=== PATIENT | male | born 1970 | race Two or more races ===

== ENCOUNTER 2024-12-27 09:17 | Outpatient (REF) | payer OTHER, SELFPAY | END 2024-12-27 09:18 | disposition home or self-care (01) | LOC: HO.HPHYSR 09:17 | PROVIDERS: PCP Internal Medicine; Visit Provider Physical Medicine & Rehabilitation | DX: M16.0 Bilateral primary osteoarthritis of hip (principal) | CPT/HCPCS: 20610; 77002; J2003; J3301; Q9967 ==

== ENCOUNTER 2024-12-27 09:17 | Outpatient (AMB) | payer OTHER, SELFPAY ==
--- OUTSIDE RECORDS SUMMARY | 2024-08-29 04:15 | XMS_ITS ---
Author Organization [facility] [address] Address [address] [place] [address] Care Team Providers Care Physics Teacher Name Role Phone JOHNLATOYA KIMBALL Unavailable [phone] Encounters Encounter Location Date Provider Diagnosis [facility] [address] [place] [address] 08/29/2024 LATOYA JOHNSON Other obesity due to [...] Status post venous procedure last month at [facility] Total time spent today was 30 minutes [...] software and direct typing Please excuse inadvertent digester capper or typing errors, or uncorrected word substitutions Although every attempt has been made by the provider to proofread this document, occasional misspellings and typographical errors may still be present Due to the previous pandemic, and the use of personal protective equipment (PPE) This may decrease voice recognition accuracy Inadvertent digester capper errors may occur 08/29/2024 BMI 35.0-35.9,adult (ICD-10 - Z68.35) #Weight Management 08/29/2024 Patient is thriving and continual improvements in body composition including fat mass Continue 15 mg dosing Status post venous procedure last month at [facility] Total time spent today was 30 [...] software and direct typing Please excuse inadvertent digester capper or typing errors, or uncorrected word substitutions Although every attempt has been made by the provider to proofread this document, occasional misspellings and typographical errors may still be present Due to the previous pandemic, and the use of personal protective equipment (PPE) This may decrease voice recognition accuracy Inadvertent digester capper errors may occur 08/29/2024 Dietary counseling and surveillance (ICD-10 - Z71.3) #Weight Management 08/29/2024 Patient is thriving and continual improvements in body composition including fat mass Continue 15 mg dosing Status post venous procedure last month at [facility] Total time spent today was 30 [...] software and direct typing Please excuse inadvertent digester capper or typing errors, or uncorrected word substitutions Although every attempt has been made by the provider to proofread this document, occasional misspellings and typographical errors may still be present Due to the previous pandemic, and the use of personal protective equipment (PPE) This may decrease voice recognition accuracy Inadvertent digester capper errors may occur 08/29/2024 PAF (paroxysmal atrial fibrillation) (ICD-10 - I48.0) #Weight Management 08/29/2024 Patient is thriving and continual improvements in body composition including fat mass Continue 15 mg dosing Status post venous procedure last month at [facility] Total time spent today was 30 [...] software and direct typing Please excuse inadvertent digester capper or typing errors, or uncorrected word substitutions Although every attempt has been made by the provider to proofread this document, occasional misspellings and typographical errors may still be present Due to the previous pandemic, and the use of personal protective equipment (PPE) This may decrease voice recognition accuracy Inadvertent digester capper errors may occur 08/29/2024 Pure hypercholesterol emia, unspecified (ICD-10 - E78.00) #Weight Management 08/29/2024 Patient is thriving and continual improvements in body composition including fat mass Continue 15 mg dosing Status post venous procedure last month at [facility] Total time spent today was 30 [...] software and direct typing Please excuse inadvertent digester capper or typing errors, or uncorrected word substitutions Although every attempt has been made by the provider to proofread this document, occasional misspellings and typographical errors may still be present Due to the previous pandemic, and the use of personal protective equipment (PPE) This may decrease voice recognition accuracy Inadvertent digester capper errors may occur 08/29/2024 DONNA (obstructive sleep apnea) (ICD-10 - G47.33) #Weight Management 08/29/2024 Patient is thriving and continual improvements in body composition including fat mass Continue 15 mg dosing Status post venous procedure last month at [facility] Total time spent today was 30 [...] software and direct typing Please excuse inadvertent digester capper or typing errors, or uncorrected word substitutions Although every attempt has been made by the provider to proofread this document, occasional misspellings and typographical errors may still be present Due to the previous pandemic, and the use of personal protective equipment (PPE) This may decrease voice recognition accuracy Inadvertent digester capper errors may occur 08/29/2024 Prediabetes (ICD-10 - R73.03) #Weight Management 08/29/2024 Patient is thriving and continual improvements in body composition including fat mass Continue 15 mg dosing Status post venous procedure last month at [facility] Total time spent today was 30 [...] software and direct typing Please excuse inadvertent digester capper or typing errors, or uncorrected word substitutions Although every attempt has been made by the provider to proofread this document, occasional misspellings and typographical errors may still be present Due to the previous pandemic, and the use of personal protective equipment (PPE) This may decrease voice recognition accuracy Inadvertent digester capper errors may occur 08/29/2024 Anemia due to [...] software and direct typing Please excuse inadvertent digester capper or typing errors, or uncorrected word substitutions Although every attempt has been made by the provider to proofread this document, occasional misspellings and typographical errors may still be present Due to the previous pandemic, and the use of personal protective equipment (PPE) This may decrease voice recognition accuracy Inadvertent digester capper errors may occur 08/29/2024 Type 2 diabetes [...] software and direct typing Please excuse inadvertent digester capper or typing errors, or uncorrected word substitutions Although every attempt has been made by the provider to proofread this document, occasional misspellings and typographical errors may still be present Due to the previous pandemic, and the use of personal protective equipment (PPE) This may decrease voice recognition accuracy Inadvertent digester capper errors may occur 08/29/2024 Encounter for examination [...] software and direct typing Please excuse inadvertent digester capper or typing errors, or uncorrected word substitutions Although every attempt has been made by the provider to proofread this document, occasional misspellings and typographical errors may still be present Due to the previous pandemic, and the use of personal protective equipment (PPE) This may decrease voice recognition accuracy Inadvertent digester capper errors may occur Plan Of Treatment Next Appt Details Provider Name:LATOYA JOHNSON, 12/31/2024 09:45:00 AM, [address] [facility], [facility] [address], [place], [address], History and Physical Notes * HPI (History [...] saw vascular surgery on July 11 at [facility] is status post endovenous radiofrequency ablation [...] weight: 250-260 lbs Comprehensive labs November 2023 [facility] epic Hemoglobin A1c of 5.0 Renal function electrolytes and LFTs are stable Total cholesterol 178, triglycerides 125, HDL 41, LDL 112 TSH 2.09 Amylase is normal 87 Lipase 76 Examination Category Sub-Category Detail Notes Category Not es General Examination GENERAL APPEARANCE: in no ac eyak distress, well developed, well nourished HEAD: normocephalic, [...] Notes * Steve CHRISTIANSONOB: (54 yo M)Acc No.[id number]:08/29/2024 Patient: Shaq Diamond Provider: Camila JOHNSON NP :1970 A ge:54 Y S ex:Male Date:08/29/2024 Address:[address] [place], [place] [id number] Subjective: * Chief Complaints: * HPI: C [...] saw vascular surgery on July 11 at [facility] is status post endovenous radiofrequency ablation [...] weight: 250-260 lbs Comprehensive labs November 2023 [facility] epic Hemoglobin A1c of 5.0 Renal [...] excess calories - E66.09 2 . B TX 35.0-35.9,adult - Z68.35 3 . D ietary [...] Status post venous procedure last month at [facility] Total time spent today was 30 minutes [...] software and direct typing Please excuse inadvertent digester capper or typing errors, or uncorrected word substitutions Although every attempt has been made by the provider to proofread this document, occasional misspellings and typographical errors may still be present Due to the previous pandemic, and the use of personal protective equipment (PPE) This may decrease voice recognition accuracy Inadvertent digester capper errors may occur * Electronic signature of LINDEN JOHNSON on 12/27/2024 at 09:37 AM EST Sign off status: Pending * Provider: Camila JOHNSON NP Date: 0 08/29/2024 Generated for Dominique Duran/Viji on: 1 02/27/2024 09:37 AM EST
--- OUTSIDE RECORDS SUMMARY | 2024-12-03 04:00 | XMS_ITS ---
Author Organization [facility] [address] Address [address] [place] [address] Care Team Providers Care Substitute Crossing Guard Name Role Phone LATOYA JOHNSON Unavailable [phone] Encounters Encounter Location Date Provider Diagnosis [facility] [address] [place] [address] 12/03/2024 LATOYA JOHNSON Plan Of Treatment Next Appt Details Provider Name:LATOYA JOHNSON, 12/31/2024 09:45:00 AM, [address], [address], [place], [address], Progress Notes * Steve DALEYOB: (54 yo M)Acc No.[id number]:12/03/2024 Patient: Herve VarelaivanJungon Provider: Camila JOHNSON NP :1970 A ge:54 Y S ex:Male Date:12/03/2024 Address:[address] [place] [phone] * Electronic signature of LINDEN JOHNSON on 12/27/2024 at 09:37 AM EST Sign off status: Pending * Provider: Camila JOHNSON NP Date: Generated for Henrii ng/Fagabrielag/eTransmitting on: 02/27/2024 09:37 AM EST
--- NOTE | 2024-12-27 09:18 | A.PHYSOV ---
Vital Signs 12/27/24 09:19 Height 5 ft 11 in Weight 242 lb BMI 33.7 BP 118/85 Temp 97.4 F Intake Visit Reasons: Bilateral Intraarticular Hip Injection Intake Note: Patient is a 54 year old male in office today for a Bilateral Intraarticular Hip Injection. Hide Cooking Operator Required: Yes Hide Cooking Operator Language: E [employer] Mer[employer] Services: Hide Cooking Operator Offered & Declined (patient wants his emergency contact) Allergies gabapentin Allergy (Unknown, Verified 12/27/24 09:22) Unknown [facility] Medical History (Updated 12/27/24 @ 09:43 by Daniel Felix DO) Degenerative joint disease of both hips Surgical History (Updated 12/27/24 @ 09:23 by Destiny Brown MA) History of appendectomy History of gastric bypass (Unknown) Social History (Updated 12/27/24 @ 09:23 by Destiny Brown MA) Alcohol intake: current Alcohol intake frequency: does not drink Patient Tobacco Use Status: Never used Tobacco Use of substances other than those prescribed or required for medical reasons: No Current occupational status: retired and disabled Physical Exam Vital Signs: Last Vital Signs Temp 97.4 F 12/27/24 09:19 BP 118/85 12/27/24 09:19 BMI result Body Mass Index 33.7 Office Procedures AMB Hip Injection AMB Hip Injection Procedure Details: Procedure performed: Bilateral hip injection under fluoroscopic guidance Preop diagnosis: Hip DJD Postop diagnosis: The same Patient was brought into the procedure room and placed in the supine position in the procedure table. Right hip joint was visualized utilizing fluoroscopy. Skin over joint was prepped with Betadine solution and draped. 3.5 in 22 gauge spinal needle was introduced percutaneously and advanced into the joint. Needle placement was verified utilizing 3 cc of Omnipaque contrast solution. Total volume of 5 cc containing 40 mg of triamcinolone and 2% lidocaine was injected after negative aspiration for blood and without resistance. The identical procedure was repeated on the left side Radiation exposure was recorded and documented in the chart. Hip intraarticular Injection - - use with FL Gd order: Bilateral All charges added?: Procedure code (CPT) selection complete Office Meds Kenalog 40 mg/mL suspension for injection Performing Provider: Daniel Felix DO Performing Location: [facility] Administered by: Daniel Felix DO on 12/27/24 09:26 Dose Route Admin Location Dispensed Lot Number Expiration Date [facility] Critical Systems Technician 80 mg intrabursal 2 mL [id number] [employer] Total Dispensed Waste 2 mL 0 % lidocaine (PF) 20 mg/mL (2 %) injection solution Performing Provider: Daniel Felix DO Performing Location: [facility] Administered by: Daniel Felix DO on 12/27/24 09:26 Dose Route Admin Location Dispensed Lot Number Expiration Date [facility] Critical Systems Technician 160 mg intrabursal 10 mL [id number] [facility] Total Dispensed Waste 10 mL 20 % Omnipaque 300 300 mg iodine/mL intravenous solution Performing Provider: Daniel Felix DO Performing [facility] Administered by: Daniel Felix DO on 12/27/24 09:26 Dose Route Admin Location Dispensed Lot Number Expiration Date [facility] Critical Systems Technician 3 mL intra-articular 10 mL [id number] [employer] Total Dispensed Waste 10 mL 70 % Assessment & Plan Assessment & Plan (1) Degenerative joint disease of both hips: Code(s): M16.0 - Bilateral primary osteoarthritis of hip Category: Medical Qualifiers: Osteoarthritis type: primary Qualified Code(s): M16.0 - Bilateral primary osteoarthritis of hip Plan Bilateral hip injection Orders: Orders FL Guided Asp Inj Major Jt BI Today M16.0 - Bilateral primary osteoarthritis of hip AMB Hip/Bursa Injection Today M16.0 - Bilateral primary osteoarthritis of hip Coding Level of Care Code Procedure Only Diagnoses Primary osteoarthritis of both hips M16.0 Osteoarthritis type: primary CPT Codes AMB Hip Injection - Hip intraarticular Injection - : Bilateral ([id number])
[2024-12-27 09:19] VITALS: BP 118/85; TEMP 36.3; BMI 33.7
--- OUTSIDE RECORDS SUMMARY | 2024-12-27 09:38 | XMS_ITS | Clinical Summary ---
Author Organization [facility] Address [address] [place] [address] Care Team Providers Care Toe Puller Name Role Phone Marianne Garner MD Primary Care Provider [phone] Allergies Active Allergy Reactions Criticality Noted Date Comments Gabapentin 09/27/2019 Medications Medication Sig Dispensed Refills Start Date End Date Status ARIPiprazole (ABILIFY) 10 MG tablet 0 04/07/2022 Active atorvastatin (LIPITOR) tablet 10 mg 0 04/07/2022 Active FLUoxetine (PROzac) 40 MG capsule 0 04/07/2022 Active fluticasone (FLONASE) 50 MCG/ACT nasal spray 2 puff each nostril as needed 0 01/25/2022 Active hydroCHLOROthiazide (HYDRODIURIL) tablet 25 mg Take 1 tablet (25 mg total) by mouth daily. 0 01/25/2022 Active lisinopril (PRINIVIL,ZESTRIL) tablet 40 mg 0 02/01/2022 Active metoprolol succinate (TOPROL-XL) 24 hr tablet 200 mg Take 1 tablet (200 mg total) by mouth daily. 0 01/25/2022 Active Active Problems No known active problems Social History Tobacco Use Types Packs/Day Years Used Date Smoking Tobacco: Never Smokeless Tobacco: Never Tobacco Cessation:Counseling Given: Not Answered Alcohol Use Standard Drinks/Week Comments Yes 0 (1 standard drink = 0.6 oz pur e alcohol) Social Sex and Gender Information Value Date Recorded Sex Assigned at Not on file Gender Identity Not on file Sexual Orientation Not on file Job Start Date Occupation Industry Not on file Not on file Not on file Last Filed Vital Signs Vital Sign Reading Time Taken Comments Blood Pressure 136/80 04/11/2022 1:28 PM EST Pulse 71 04/11/2022 1:28 PM EST Temperature 36.4 C (97.6 F) 04/11/2022 1:28 PM EST Respiratory Rate - - Oxygen Saturation 97% 04/11/2022 1:28 PM EST Inhaled Oxygen Concentration - - Weight 152 kg (335 lb) 04/11/2022 1:28 PM EST Height - - Body Mass Index - - Plan of Treatment Health Maintenance Due Date Last Done Comments Hepatitis B Vaccines (1 of 3 - 3-dose series) 1970 Hepatitis C Screening 1970 COVID-19 Vaccine (#1) 1970 Depression Screening 1983 Preventative Health Evaluation 06/17/1989 Colon Cancer Screening (Colonoscopy) 06/17/2016 Shingrix-Zoster Vaccine (1 of 2) 06/17/2021 DTap / Tdap / Td (2 - Td or Tdap) 09/06/2021 09/07/2011 Influenza Vaccine (#1) 2024 5, 12/04/2013, 10/19/2012, Additional history exists Pneumococcal Vaccine Aged Out No long er eligible based on patient's age to complete this topic RSV Ped < 20 months Aged Out No longe r eligible based on patient's age to complete this topic Care Teams Toe Puller Relationship Specialty Start Date End Date Marianne Garner MD [address] [address] PCP - General Internal Medicine 02/02/22
--- OUTSIDE RECORDS SUMMARY | 2024-12-27 09:38 | XMS_ITS | Clinical Summary ---
Author Organization 175 [facility] Address [address] [place] [address] Phone Care Team Providers Care Superintendent Storage Area Name Role Phone Marianne Garner MD Primary Care Provider [phone] Allergies Active Allergy Reactions Criticality Noted Date Comments Gabapentin 09/27/2019 Medications albuterol HFA (PROAIR HFA ; PROVENTIL HFA ; VENTOLIN HFA) 90 mcg/actuation inhaler Inhale 2 Puffs into the lungs every 6 hours as needed for Cough, Wheezing or Shortness of Breath. 4 Active ARIPiprazole (ABILIFY) 10 mg tablet Take 1 Tablet by mouth daily. 3 Active aspirin 81 mg EC tablet Take 1 Tab by mouth daily. 9 Active cetirizine (ZyrTEC) 10 mg tablet TAKE 1 TABLET BY MOUTH DAILY 4 Active clotrimazole (LOTRIMIN) 1 % cream APPLY TOPICALLY TO THE AFFECTED AREA TWICE DAILY FOR 10 DAYS FOR RASH 4 Active FLUoxetine (PROzac) 40 mg capsule 3 Active multivitamin with minerals (MULTIPLE VITAMIN-MINERALS ORAL) Take by mouth daily. Active fish,bora,flax oils-om3,6,9no1 (Caldwell 3-6-9) 1,200 mg capsule Caldwell 3-6-9 Cap Take by mouth daily. Active ondansetron ODT (ZOFRAN-ODT) 4 mg disintegrating tablet 1 tablet (4 mg total) every 8 (eight) hours if needed. 4 Active traZODone (DESYREL) 50 mg tablet Take 1 tablet (50 mg total) by mouth at bedtime as needed. 4 Active UNABLE TO FIND CPAP HISTORICAL (HISTORICAL CPAP)Inhale into the lungs. [employer]-pressure 8 Active diclofenac (VOLTAREN) 1 % topical gelIndications:Acu te pain of both knees Apply 4 g topically 2 (two) times a day if needed (maggie knee pain). 100 g 1 4 Active linaCLOtide (LINZESS) 145 mcg capsule Take 1 capsule (145 mcg total) by mouth 1 (one) time each day. Active atorvastatin (Lipitor) 40 mg tablet Take 1 tablet (40 mg total) by mouth at bedtime. 30 each 11 5 026 Active tiZANidine (ZANAFLEX) 4 mg tablet 1 tablet (4 mg total) every 8 hours. PRN Active eszopiclone (LUNESTA) 2 mg tablet Take 1 tablet (2 mg total) by mouth at bedtime. Active tirzepatide (Mounjaro) 15 mg/0.5 mL injection Inject 0.5 mL (15 mg total) under the skin every 7 (seven) days. Active lisinopril (PRINIVIL,ZESTRIL) 40 mg tablet TAKE 1 TABLET(40 MG) BY MOUTH 1 TIME EACH DAY 90 tablet 1 5 Active hydroCHLOROthiazid e (HYDRODIURIL) 25 mg tablet Take 1 tablet (25 mg total) by mouth 1 (one) time each day. 90 tablet 1 5 Active metoprolol succinate (TOPROL-XL) 200 mg 24 hr tablet TAKE 1 TABLET(200 MG) BY MOUTH 1 TIME EACH DAY 90 tablet 1 5 Active fluticasone propionate (FLONASE) 50 mcg/actuation nasal spray SHAKE LIQUID AND USE 2 SPRAYS IN EACH NOSTRIL 1 TIME EACH DAY 16 g 3 5 Active Active Problems Problem Noted Date Diagnosed Date Venous reflux 12/06/2023 Overview (12/15/2023): He had venous duplex on 10/23/2023. This revealed no evidence of deep vein thrombosis. On the right side there is no superficial venous thrombosis. No venous reflux noted in the small saphenous vein. This saphenofemoral popliteal junction was not identified. There is severe up to 4.5 seconds of reflux in the proximal, mid, at knee, and output greater Saphenous vein. There is no reflux within the lower calf greater saphenous vein. On the left there is no evidence of deep vein thrombosis. There is 4.1 seconds of reflux in the saphenofemoral junction, 4.5 seconds of reflux in the common femoral vein, 2.9 seconds of reflux in the mid femoral vein and 4.5 seconds of reflux in the popliteal vein. Palpitations 05/04/2022 Overview (12/15/2023): Last Assessment & Plan: Likely a subjective awareness of high blood pressure more so than incidental PVCs given that he did not really feel his PVCs in the office today, symptoms are few and far between at this point, continue to monitor for worsening severity Premature ventricular contractions 04/27/2022 Overview (12/15/2023): - Incidentally noted during an ER visit to [facility] for sensation of palpitations associated with high blood pressure on his home monitor - I am not convinced that these are truly symptomatic -In the office on 05/04/2022, PVCs are of left bundle morphology with inferior axis- consistent with possible RVOT focus -Patient had echocardiogram on 06/2022. This revealed mildly dilated left ventricular cavity with mild, concentric left ventricular hypertrophy. Mild global LV systolic dysfunction with ejection fraction of 45 to 50%. There is normal right ventricular size and systolic function. No hemodynamically significant valve disease. Moderately dilated left atrium Last Assessment & Plan: Incidentally noted and likely asymptomatic as he did not feel any of the PVCs experienced in the office today Already on metoprolol 100 mg which I do not feel needs to be increased Reassured that these are likely benign but I am obtaining a 2D echocardiogram to assure that his ejection fraction is normal, will likely need to be done with Definity contrast enhancement Hyperlipidemia 10/19/2016 Assessment & Plan (02/19/2024 9:21 AM EST): Going to increase patient's atorvastatin from 20 mg to 40 mg p.o. daily. Going to get a lipid redraw in 3 months. Patient's been instructed to reach out to the office if he develops any side effects such as myalgias. Has been educated on adhering to a cardiac healthy diet. Orders: Lipid panel; Future Primary osteoarthritis of right hip 10/30/2015 Spondylosis of lumbar region without myelopathy or radiculopathy 10/30/2015 Anxiety 07/02/2014 Pulmonary nodule, right 02/17/2014 Overview (12/15/2023): 4.[address] done at [facility] to r/o PE. Repeat recommended for February 2015 Depression 06/03/2013 Overview (12/15/2023): Patient has a prescribing psychiatric provider in [facility] (dr Vargas). On carbamezepine and citalopram and lorazepam Morbid obesity ([facility] V24, [facility] V28) 2012 DONNA (obstructive sleep apnea) 06/20/2012 Overview (12/15/2023): Patient using a CPAP machine nightly Last Assessment & Plan: Patient with severe obstructive sleep apnea Compliance report meeting DME requirements with use of 99% of the time more than 4 hours and adequate suppression of the apneas Despite his continued use his ESS score is 15 and he has hypersomnolence Encouraged to continue with the weight loss reduction program Advised to continue using the CPAP machine Supplies letter has been given Paroxysmal A-fib ([facility] V24, [facility] V28) 02/07 Overview (12/15/2023): - Initially had an episode sometime around 2006 per the patient and his legislative analyst in [place] at which point he reports being cardioverted- apparently was told he needed a pacemaker but sought a second opinion from another salesforce developer who did not feel this was needed - Admitted with yecenia at [facility] on 02/2014. MICAH score of 1. Recommended rate control and ASA Last Assessment & Plan: Very low burden, low [id number] score overall, agree with baby aspirin, continue metoprolol which is serving both as rate control but also for blood pressure control Assessment & Plan (02/19/2024 9:21 AM EST): Patient is in sinus rhythm on EKG today. [id number] 2 score of 1. Recommended rate control and aspirin. Patient is still on those medications, and seems to be doing well. Varicose veins of both lower extremities 012 Overview (12/15/2023): Varicose veins Chronic low back pain 09/07/2011 HTN (hypertension) 09/07/2011 Overview (12/15/2023): Last Assessment & Plan: Reasonably well-controlled on current meds, continue, continue use of CPAP Agree with seeking assistance from weight management clinic for weight loss-no cardiovascular contraindications to Ozempic Assessment & Plan (02/19/2024 9:21 AM EST): Patient reports that he has been trying to lose weight and has been exercising/walking. He reports that he feels like his blood pressures have been low in the morning, however, they seem to be in 110s over 70s. I am going to have the patient take blood pressure measurements record them and get back to the office in a week. Can titrate medications based on those values. I did educate him that if he continues to lose weight he would likely notice his blood pressure numbers going down. Encounters Date Type Department Care Team Description 11/19/2024 10:35 AM EDT Office Visit Pulmonology - [address] [place] [address] Marni Narvaez NP DONNA (obstructive sleep apnea) (Primary Dx); Hypertension, unspecified type; Depression, unspecified depression type; Paroxysmal A-fib (CMS/HCC V24, CMS/HCC V28); Obesity (BMI 30-39.9) from Last 3 Months Surgical History Surgery Date Site/Laterality Comments APPENDECTOMY PROCEDURE: HISTORICAL APPENDECTOMY OTHER SURGICAL HISTORY PROCEDURE: GA THYROIDECTOMY RMVL REMAINING TISS FLWG PRTL RMVL; COMMENT: normal thyroid nodule OTHER SURGICAL HISTORY 06/2014 PROCEDURE: ---- OTHER ----; COMMENT: history of bariatric surgery/ gastric sleeve Medical History Medical History Date Comments PA, old DX:PA, old HTN (hypertension) DX:HTN (hyper tension) Chronic lumbar pain DX:Chronic l umbar pain Family History Medical History Relation Name Comments Hypertension Brother Other: ovarian cancer Daughter 1 Diabetes Father Heart attack Father Stroke Father Diabetes Grandparent 1 Heart attack Grandparent 2 Hypertension Mother Hypertension Sister Relation Name Status Comments Brother Alive Daughter 1 Alive dm Daughter 2 Alive Daughter 3 Alive Father (Age 56) htn Grandparent 1 Grandparent 2 Mother Alive htn Sister Alive htn Social History Tobacco Use Types Packs/Day Years Used Date Smoking Tobacco: Never Smokeless Tobacco: Never Tobacco Cessation:Counseling Given: Not Answered Alcohol Use Standard Drinks/Week Comments No 0 (1 standard drink = 0.6 oz pur e alcohol) Sex and Gender Information Value Date Recorded Sex Assigned at Not on file Legal Sex Male 1:00 AM EST Gender Identity Not on file Sexual Orientation Not on file Obstetrics History Last Filed Vital Signs Vital Sign Reading Time Taken Comments Blood Pressure 124/72 11/19/2024 10:17 AM EDT Pulse 77 11/19/2024 10:17 AM EDT Temperature 36.6 C (97.8 F) 11/19/2024 10:17 AM EDT Respiratory Rate 16 11/19/2024 10:17 AM EDT Oxygen Saturation 99% 11/19/2024 10:17 AM EDT Inhaled Oxygen Concentration - - Weight 118 kg (259 lb 9.6 oz) 11/19/2024 10:17 A M EDT Height 180.3 cm (5' 11 ) 11/19/2024 10:17 AM EDT Body Mass Index 36.21 11/19/2024 10:17 AM EDT Plan of Treatment Upcoming Encounters Date Type Department Care Team (Late st Contact Info) Description 01/15/2025 2:30 PM EST Office Visit Vascular Surgery - [address] [place] [address] Lila Spence MD [address] [place] [phone] 02/21/2025 9:45 AM EST Office Visit Pulmonology - [address] [phone] Marni Narvaez NP [address] [place] [phone] 02/28/2025 8:15 AM EST Office Visit Internal Medicine - [address] [place] [phone] Marianne Garner MD [address] [place] [phone] Health Maintenance Due Date Last Done Comments Colorectal Cancer Screening: Colonoscopy 1971 Diabetes: Annual Foot Exam 06/17/1981 Diabetes: Annual Retina Eye Exam 06/17/1981 Hepatitis B Vaccines (1 of 3 - 19+ 3-dose series) 06/17/1990 Pneumococcal Vaccine: 50+ Years (1 of 1 - PCV) 06/17/2021 Zoster Vaccines (1 of 2) 06/17/2021 DTaP,Tdap,and Td Vaccines (2 - Td or Tdap) 09/06/2021 09/07/2011 Medicare Annual Wellness Visit 01/15/2022 Social Influencers of Health Screening 01/15/2022 Diabetes: Annual Urine Albumin-Creatinine Ratio (uACR) 11/17/2023 Depression Screening 02/07/2024 07/31/2020 Diabetes: Blood Sugar Control Test (HGBA1C) 05/15/2024 11/15/2023, 11/15/2023 COVID-19 Vaccine ( season) 2024 01/24/2023, 02/07/2021, 06/20/2020, Additional history exists Influenza Vaccine (#1) 2024 , 11/28/2017, 10/17/2014, Additional history exists Diabetes: Annual GFR (Glomerular Filtration Rate) 09/24/2025 09/24/2024, 05/02/2024, 11/15/2023, Additional history exists Hypertension/CHF/CAD Annual BMP Blood Test 09/24/2025 09/24/2024, 05/02/2024, 11/15/2023, Additional history exists Cholesterol Screening (Lipid Panel) 09/24/2029 09/24/2024, 05/02/2024, 11/15/2023, Additional history exists RSV Immunization Adult Patients (1 - 1-dose 75+ series) 06/17/2046 HIV Screening Completed 09/19/2013 Hepatitis C Screening Completed 09/19/2013 HIB Vaccines Aged Out No longer eligi ble based on patient's age to complete this topic HPV Vaccines Aged Out No longer eligi ble based on patient's age to complete this topic Hepatitis A Vaccines Aged Out No long er eligible based on patient's age to complete this topic IPV Vaccines Aged Out No longer eligi ble based on patient's age to complete this topic MMR Vaccines Aged Out No longer eligi ble based on patient's age to complete this topic Meningococcal ACWY Vaccine Aged Out N o longer eligible based on patient's age to complete this topic Meningococcal B Vaccine Aged Out No l onger eligible based on patient's age to complete this topic RSV Immunization Patients Under 20 months Aged Out No longer eligible based on patient's age to complete this topic Varicella Vaccines Aged Out No longer eligible based on patient's age to complete this topic Procedures Procedure Name Priority Date/Time Associated Diagnosis Comments COMPREHENSIVE METABOLIC PANEL Routine 09/24/2024 8:50 AM EDT Primary hypertension Mixed hyperlipidemia LIPID PANEL WITH REFLEX TO DIRECT LDL Routine 09/24/2024 8:50 AM EDT Primary hypertension Mixed hyperlipidemia HEMOGLOBIN A1C Routine 11/15/2023 DEPRESSION SCREENING Routine 07/31/2020 HEPATITIS C SCREENING Routine 09/19/2013 HIV SCREENING Routine 09/19/2013 from Last 3 Months or Most Recently Relevant to Health Maintenance Results * (ABNORMAL) Lipid panel with reflex to direct LDL (09/24/2024 8:50 AM EDT) Cholesterol 188 0 - 200 mg/dL LAB CHEMISTRY METHOD 09/24/2024 2:42 PM EDT [facility] Triglycerides 148 0 - 150 mg/dL LAB CHEMISTRY METHOD 09/24/2024 2:42 PM EDT [facility] HDL 43 >=40 mg/dL LAB CHEMISTRY METHOD 09/24/2024 2:42 PM EDT [facility] LDL Calculated 115(H) 0 - 100 mg/dL LAB CHEMISTRY METHOD 09/24/2024 2:42 PM EDT [facility] Comment:Estimated LDL Calcul ated using equation: Total cholesterol - HDL cholesterol - (Triglycerides/5) VLDL Cholesterol Jarrod 29.6 mg/dL LAB CHEMISTRY METHOD 09/24/2024 2:42 PM EDT [facility] Non HDL Chol. (LDL+VLDL) 145(H) <145 mg/dL LAB CHEMISTRY METHOD 09/24/2024 2:42 PM EDT [facility] Chol/HDL Ratio 4.4 0.0 - 4.4 LAB CHEMISTRY METHOD 09/24/2024 2:42 PM EDT [facility] Blood Venous blood specimen / Unknown Venipuncture / Unknown 09/24/2024 8:50 AM EDT 09/24/2024 8:50 AM EDT us Marianne Garner MD LAB BLOOD ORDERABLES Final Res ult [facility] [address] [place] [address], * Comprehensive metabolic panel (09/24/2024 8:50 AM EDT) Sodium 138 133 - 145 mmol/L LAB CHEMISTRY METHOD 09/24/2024 2:42 PM EDT [facility] Potassium 3.8 3.5 - 5.5 mmol/L LAB CHEMISTRY METHOD 09/24/2024 2:42 PM [facility] Chloride 101 96 - 110 mmol/L LAB CHEMISTRY METHOD 09/24/2024 2:42 PM [facility] CO2 32 21 - 32 mmol/L LAB CHEMISTRY METHOD 09/24/2024 2:42 PM [facility] Anion Gap 5 3 - 11 LAB CHEMISTRY METHOD 09/24/2024 2:42 PM [facility] Glucose 79 70 - 100 mg/dL LAB CHEMISTRY METHOD 09/24/2024 2:42 PM [facility] BUN 20 5 - 25 mg/dL LAB CHEMISTRY METHOD 09/24/2024 2:42 PM [facility] Creatinine 1.16 0.70 - 1.30 mg/dL LAB CHEMISTRY METHOD 09/24/2024 2:42 PM [facility] eGFR 75 >=60 mL/min/1. 73m2 LAB CHEMISTRY METHOD 09/24/2024 2:42 PM [facility] Comment:Calculation based on the Chronic Kidney Disease Epidemiology Collaboration (CKD-EPI) equation refit without adjustment for race. BUN/Creatinine Ratio 17.2 LAB CHEMISTRY METHOD 09/24/2024 2:42 PM [facility] Calcium 8.9 8.5 - 10.5 mg/dL LAB CHEMISTRY METHOD 09/24/2024 2:42 PM [facility] AST (SGOT) 21 10 - 42 unit/L LAB CHEMISTRY METHOD 09/24/2024 2:42 PM [facility] ALT (SGPT) 29 10 - 60 unit/L LAB CHEMISTRY METHOD 09/24/2024 2:42 PM [facility] Alkaline Phosphatase 90 42 - 121 unit/L LAB CHEMISTRY METHOD 09/24/2024 2:42 PM [facility] Total Protein 7.3 6.0 - 8.0 g/dL LAB CHEMISTRY METHOD 09/24/2024 2:42 PM EDT [facility] Albumin 3.7 3.2 - 5.0 g/dL LAB CHEMISTRY METHOD 09/24/2024 2:42 PM EDT [facility] Total Bilirubin 0.7 0.0 - 1.4 mg/dL LAB CHEMISTRY METHOD 09/24/2024 2:42 PM EDT [facility] Blood Venous blood specimen / Unknown Venipuncture / Unknown 09/24/2024 8:50 AM EDT 09/24/2024 8:50 AM EDT Marianne Garner MD LAB BLOOD ORDERABLES Final Res ult [facility] [address] [place] [address], * Hemoglobin A1c (11/15/2023) [facility] Hemoglobin A1C 5.0 <=6.5 % Blood Venous blood specimen / Unknown Historical Provider LAB BLOOD ORDERABLES Ana l Result * Depression Screening (07/31/2020) Pathologist [facility] Depression Screening Abstracted Historical Provider HEALTH MAINTENANCE Final Result * HIV Screening (09/19/2013) Pathologist [facility] HIV Screening Abstracted Historical Provider HEALTH MAINTENANCE Final Result * Hepatitis C Screening (09/19/2013) Pathologist [facility] Hepatitis C Screening Abstracted Historical Provider HEALTH MAINTENANCE Final Result from Last 3 Months or Most Recently Relevant to Health Maintenance Insurance [facility] MEDICARE Member Subscriber Plan / Payer (Ef fective 2019-Present) Name:GUILLERMO CHRISTIANSON Relation to Subscriber:Self Name:Guillermo Christianson Payer ID:[id number] Group ID:[id number] Type:Not on file Address: [facility] [address] [id number] Care Teams Superintendent Storage Area Relationship Specialty Start Date End Date Marianne Garner MD [address] [phone] PCP - General Internal Medicine 01/08/24
--- OUTSIDE RECORDS SUMMARY | 2024-12-27 09:38 | XMS_ITS | Patient Health Record ---
Author Organization [facility] [address] Address [address] [place] [address] Care Team Providers Care Liquid Fertilizer Servicer Name Role Phone LATOYA JOHNSON Unavailable [phone] Allergies Allergen (clinical drug ingredient) Drug/Non Drug Allergy documented on EMR Reaction Allergy Type Onset Date Status gabapentin Gabapentin rash Drug Allergy Activ e Reason For Referral No Information Medications Medication SIG (Take, Route, Frequency, Duration) Notes Start Date End Date Status tiZANidine HCl 4 MG Tablet 1 tablet as n eeded Orally Three times a day Active Cetirizine HCl 10 MG Tablet 1 tablet Ora lly Once a day Active Mounjaro 15 MG/0.5ML Solutio n Auto-injector 15mg Subcutaneous weekly; Duration: 30 days Active Aspirin 81 81 MG Tablet Chewable 1 tablet Orally Once a day Active Atorvastatin Calcium 20 MG Tablet 1 tablet Orally Once a day Active Fluticasone Furoate 100 MCG/ACT Aerosol Powder Breath Activated 1 puff Inhalation Once a day Active Ondansetron 4 MG Tablet Disintegrating 1 tablet on the tongue and allow to dissolve prn nausea/vomiting Orally twice day; Duration: 30 days Active Lisinopril 40 MG Tablet 1 tablet Orally Once a day Active hydroCHLOROthiazide 25 MG Tablet 1 tablet in the morning Orally Once a day Active Multivitamin - Tablet 1 tablet Orally On ce a day Active Linzess 145 MCG Capsule [address] 30 minutes before the first meal of the day on an empty stomach Orally Once a day; Duration: 30 days 06/04/2024 Active Metoprolol Succinate ER 200 MG Tablet Extended Release 24 Hour 1 tablet Orally Once a day Active Clotrimazole 1 % Cream 1 application Externally Twice a day Active cloNIDine 0.1 MG/24HR Patch Weekly 1 patch to skin Transdermal Active Social History Tobacco Use: Social History Observation Description Date Details (start date - stop date) Never Smoker NA - NA Social History Tobacco Use: Social Info Question Answer Notes Tobacco Use/Smoking Are you a nonsmoker Additional Details Category Social Info Options Details Drugs/Alcohol: Do you smoke marijuana? De nies Do you drink alcohol? No Problems Problem Type SNOMED Code ICD Code Onset Dates Problem Status W/U Status Risk Notes Problem Morbid obesity (disorder) (730111103) Morbid (severe) obesity due to excess calories (E66.01) Active confirmed Problem Obesity due to exces s calories (425088023) Other obesity due to excess calories (E66.09) Active confirmed Problem Pure hypercholesterolemia (005796899) Pure hypercholesterol emia, unspecified (E78.00) Active confirmed Problem Hyperlipidaemia (73962268) Hyperlipidemia, unspecified hyperlipidemia type (E78.5) Active confirmed Problem Hypothyroidism (53702567) Hypothyroidism, unspecified type (E03.9) Active confirmed Problem Obstructive sleep apnea syndrome (55466770) DONNA (obstructive sleep apnea) (G47.33) Active confirmed Problem Body mass index 40+ - morbidly obese (376208546) BMI 40.0-44.9, adult (Z68.41) Active confirmed Problem Type II diabetes mellitus without complication (901103265) Type 2 diabetes mellitus without complication, without long-term current use of insulin (E11.9) Active confirmed Problem Body mass index 35.0 0 to 39.99 (345818033341393) Body mass index [BMI] 39.0-39.9, adult (Z68.39) Active confirmed Problem Obese class II (523336456198298) BMI 35.0-35.9,adult (Z68.35) Active confirmed Problem Vitamin B>12< deficiency anaemia (08858202) Anemia due to vitamin B12 deficiency, 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) Active confirmed Problem Obese class II (923076686221625) BMI 38.0-38.9,adult (Z68.38) Active confirmed Problem Atrial fibrillation (97761967) PAF (paroxysmal atrial fibrillation) (I48.0) Active confirmed Problem Body mass index 40+ - severely obese (784648817) BMI 45.0-49.9, adult (Z68.42) Active confirmed Vital Signs Heart Rate 83 /min 10/22/2024 Oximetry 99 % 10/22/2024 Blood pressure diastolic 80 mm Hg 10/22/2024 Height 71 in 10/22/2024 Blood pressure systolic 106 mm Hg 10/22/2024 Weight 256.5 lbs 10/22/2024 BMI 35.77 kg/m2 10/22/2024 Encounters Encounter Location Date Provider Diagnosis [facility] [address] [address] 01/19/2024 LATOYA CARRShirley Other obesity due to excess calories E66.09 ; BMI 38.0-38.9,adult Z68.38 ; Dietary counseling and surveillance Z71.3 ; PAF (paroxysmal atrial fibrillation) I48.0 ; Pure hypercholesterolemia, unspecified E78.00 ; DONNA (obstructive sleep apnea) G47.33 ; Prediabetes R73.03 ; Anemia due to vitamin B12 deficiency, unspecified B12 deficiency type D51.9 and Type 2 diabetes mellitus without complication, without long-term current use of insulin E11.9 [facility] [address] [address] 03/06/2024 LATOYA ALEX Other obesity due to excess calories E66.09 ; BMI 38.0-38.9,adult Z68.38 ; Dietary counseling and surveillance Z71.3 ; PAF (paroxysmal atrial fibrillation) I48.0 ; Pure hypercholesterolemia, unspecified E78.00 ; DONNA (obstructive sleep apnea) G47.33 ; Prediabetes R73.03 ; Anemia due to vitamin B12 deficiency, unspecified B12 deficiency type D51.9 and Type 2 diabetes mellitus without complication, without long-term current use of insulin E11.9 [facility] [address] [address] 04/17/2024 LATOYA ALEX Other obesity due to excess calories E66.09 ; BMI 35.0-35.9,adult Z68.35 ; Dietary counseling and surveillance Z71.3 ; PAF (paroxysmal atrial fibrillation) I48.0 ; Pure hypercholesterolemia, unspecified E78.00 ; DONNA (obstructive sleep apnea) G47.33 ; Prediabetes R73.03 ; Anemia due to vitamin B12 deficiency, unspecified B12 deficiency type D51.9 and Type 2 diabetes mellitus without complication, without long-term current use of insulin E11.9 [facility] [address] [address] 06/04/2024 LATOYA BORHOT Other obesity due to excess calories E66.09 ; BMI 35.0-35.9,adult Z68.35 ; Dietary counseling and surveillance Z71.3 ; PAF (paroxysmal atrial fibrillation) I48.0 ; Pure hypercholesterolemia, unspecified E78.00 ; DONNA (obstructive sleep apnea) G47.33 ; Prediabetes R73.03 ; Anemia due to vitamin B12 deficiency, unspecified B12 deficiency type D51.9 and Type 2 diabetes mellitus without complication, without long-term current use of insulin E11.9 [facility] [address] [address] 07/17/2024 LATOYA BORHOT Other obesity due to excess calories E66.09 [...] of blood pressure without abnormal findings Z01.30 [facility] [address] [address] 09/09/2024 LATOYA BORHOT Other obesity due to excess calories E66.09 [...] of blood pressure without abnormal findings Z01.30 [facility] [address] [address] 10/22/2024 LATOYA BORHOT Other obesity due to excess calories E66.09 ; BMI 35.0-35.9,adult Z68.35 ; Dietary counseling and surveillance Z71.3 ; PAF (paroxysmal atrial fibrillation) I48.0 ; Pure hypercholesterolemia, unspecified E78.00 ; DONNA (obstructive sleep apnea) G47.33 ; Prediabetes R73.03 ; Type 2 diabetes mellitus without complication, without long-term current use of insulin E11.9 and Encounter for examination of blood pressure without abnormal findings Z01.30 [facility] [address] [facility] [address] [place] [address] 05/14/2024 LATOYA JOHNSON Other obesity due to excess calories E66.09 [facility] [address] [facility] [address] [facility] [address] [place] [address] 08/28/2024 LATOYA JOHNHOShirley Other obesity due to excess calories E66.09 [facility] [address] [facility] [address] [facility] [address] [place] [address] 10/11/2024 LATOYA JOHNSON Morbid (severe) obes ity due to excess calories E66.01 and Other obesity due to excess calories E66.09 [facility] [address] [facility] [address] [facility] [address] [place] [address] 11/12/2024 LATOYA JOHNSON Other obesity due to excess calories E66.09 Assessments Encounter Date Diagnosis (ICD Code) Assessment Notes Treatment Notes Treatment Clinical Notes Section Notes 01/19/2024 Other obesity due to excess calories (ICD-10 - E66.09) #Weight Management 01/19/2024 Thriving and has left the morbid obesity world Continue with dual incretin therapy Increased to 15 mg dosing Total time spent today was 30 minutes of which greater than 50% was spent on coordinating and counseling Patient has been found to be obese with a BMI of (38). Patient has class (3) obesity. We are a board certified obesity and weight management practice Patient has trialed behavioral modification, dietary restrictions and exercise for a minimum of 6 months The most recent [place] [employer]ocrin[employer] and [place] [employer] guidelines recommend patients who have overweight BMI or obesity BMI, who also have metabolic syndrome, prediabetes, HLD, and other comorbidities or at risk of developing type 2 diabetes should aim for a weight loss goal of at least 10% of the baseline body weight Patient counseled regarding effects of GLP/GIP-1 agonists, and other FDA approved wgt loss meds with regards to a multifactorial approach of weight loss as mentioned above and not solely appetite suppression. Of note, some information is being carried forward from prior records for informational purposes only and is being cited so that efficiency, safety and quality of the patient's care is not compromised This note was prepared using voice recognition software and direct typing Please excuse inadvertent tobacco grader or typing errors, or uncorrected word substitutions Although every attempt has been made by the provider to proofread this document, occasional misspellings and typographical errors may still be present Due to the previous pandemic, and the use of personal protective equipment (PPE) This may decrease voice recognition accuracy Inadvertent tobacco grader errors may occur 03/06/2024 Other obesity due to excess calories (ICD-10 - E66.09) #Weight Management 03/06/2024 Continuing to improve Body composition analysis improving Continue 15 mg dosing Total time spent today was 30 minutes of which greater than 50% was spent on coordinating and counseling Patient has been found to be obese with a BMI of (38). Patient has class (3) obesity. We are a board certified obesity and weight management practice Patient has trialed behavioral modification, dietary restrictions and exercise for a minimum of 6 months The most recent [place] [employer]ocrinologists and [place] [employer] guidelines recommend patients who have overweight BMI or obesity BMI, who also have metabolic syndrome, prediabetes, HLD, and other comorbidities or at risk of developing type 2 diabetes should aim for a weight loss goal of at least 10% of the baseline body weight Patient counseled regarding effects of GLP/GIP-1 agonists, and other FDA approved wgt loss meds with regards to a multifactorial approach of weight loss as mentioned above and not solely appetite suppression. Of note, some information is being carried forward from prior records for informational purposes only and is being cited so that efficiency, safety and quality of the patient's care is not compromised This note was prepared using voice recognition software and direct typing Please excuse inadvertent tobacco grader or typing errors, or uncorrected word substitutions Although every attempt has been made by the provider to proofread this document, occasional misspellings and typographical errors may still be present Due to the previous pandemic, and the use of personal protective equipment (PPE) This may decrease voice recognition accuracy Inadvertent tobacco grader errors may occur 04/17/2024 Other obesity due to excess calories (ICD-10 - E66.09) #Weight Management 04/17/2024 Continue fiber and water We gave him some Linzess samples Body composition analysis improving Continue 15 mg dosing Total time spent today was 30 minutes [...] software and direct typing Please excuse inadvertent tobacco grader or typing errors, or uncorrected word substitutions Although every attempt has been made by the provider to proofread this document, occasional misspellings and typographical errors may still be present Due to the previous pandemic, and the use of personal protective equipment (PPE) This may decrease voice recognition accuracy Inadvertent tobacco grader errors may occur 05/14/2024 Other obesity due to excess calories (ICD-10 - E66.09) 06/04/2024 Other obesity due to excess calories (ICD-10 - E66.09) #Weight Management 06/04/2024 Patient is thriving and continual improvements in body composition including fat mass Continue 15 mg dosing Total time spent today was 30 minutes [...] software and direct typing Please excuse inadvertent tobacco grader or typing errors, or uncorrected word substitutions Although every attempt has been made by the provider to proofread this document, occasional misspellings and typographical errors may still be present Due to the previous pandemic, and the use of personal protective equipment (PPE) This may decrease voice recognition accuracy Inadvertent tobacco grader errors may occur 07/17/2024 Other obesity due to excess calories (ICD-10 - E66.09) #Weight Management 07/17/2024 Patient is thriving and continual improvements in body composition including fat mass Continue 15 mg dosing Status post venous procedure last month at [facility] Total time spent today was 30 [...] software and direct typing Please excuse inadvertent tobacco grader or typing errors, or uncorrected word substitutions Although every attempt has been made by the provider to proofread this document, occasional misspellings and typographical errors may still be present Due to the previous pandemic, and the use of personal protective equipment (PPE) This may decrease voice recognition accuracy Inadvertent tobacco grader errors may occur 08/28/2024 Other obesity due to excess calories (ICD-10 - E66.09) 09/09/2024 Other obesity due to excess calories (ICD-10 - E66.09) #Weight Management 09/09/2024 Patient is thriving and continual improvements in body composition Continue 15 mg dosing Will be due for updated labs later this fall Total time spent today was 30 minutes [...] software and direct typing Please excuse inadvertent tobacco grader or typing errors, or uncorrected word substitutions Although every attempt has been made by the provider to proofread this document, occasional misspellings and typographical errors may still be present Due to the previous pandemic, and the use of personal protective equipment (PPE) This may decrease voice recognition accuracy Inadvertent tobacco grader errors may occur 10/22/2024 Other obesity due to excess calories (ICD-10 - E66.09) #Weight Management 10/22/2024 Patient is thriving and continual improvements in body composition Continue 15 mg dosing Labs are reviewed Total time spent today was 30 minutes [...] software and direct typing Please excuse inadvertent tobacco grader or typing errors, or uncorrected word substitutions Although every attempt has been made by the provider to proofread this document, occasional misspellings and typographical errors may still be present Due to the previous pandemic, and the use of personal protective equipment (PPE) This may decrease voice recognition accuracy Inadvertent tobacco grader errors may occur 11/12/2024 Other obesity due to excess calories (ICD-10 - E66.09) 10/22/2024 BMI 35.0-35.9,adult (ICD-10 - Z68.35) #Weight Management 10/22/2024 Patient is thriving and continual improvements in body composition Continue 15 mg dosing Labs are reviewed Total time spent today was 30 minutes [...] software and direct typing Please excuse inadvertent tobacco grader or typing errors, or uncorrected word substitutions Although every attempt has been made by the provider to proofread this document, occasional misspellings and typographical errors may still be present Due to the previous pandemic, and the use of personal protective equipment (PPE) This may decrease voice recognition accuracy Inadvertent tobacco grader errors may occur 10/11/2024 Morbid (severe) obesity due to excess calories (ICD-10 - E66.01) Electronic Prior Authorization was requested for Mounjaro 15 MG/0.5ML Solution Auto-injector. Provider can order medication once approval received. 09/09/2024 BMI 35.0-35.9,adult (ICD-10 - Z68.35) #Weight Management 09/09/2024 Patient is thriving and continual improvements in body composition Continue 15 mg dosing Will be due for updated labs later this fall Total time spent today was 30 minutes [...] software and direct typing Please excuse inadvertent tobacco grader or typing errors, or uncorrected word substitutions Although every attempt has been made by the provider to proofread this document, occasional misspellings and typographical errors may still be present Due to the previous pandemic, and the use of personal protective equipment (PPE) This may decrease voice recognition accuracy Inadvertent tobacco grader errors may occur 07/17/2024 BMI 35.0-35.9,adult (ICD-10 - Z68.35) #Weight Management 07/17/2024 Patient is thriving and continual improvements in body composition including fat mass Continue 15 mg dosing Status post venous procedure last month at [facility] Total time spent today was 30 [...] software and direct typing Please excuse inadvertent tobacco grader or typing errors, or uncorrected word substitutions Although every attempt has been made by the provider to proofread this document, occasional misspellings and typographical errors may still be present Due to the previous pandemic, and the use of personal protective equipment (PPE) This may decrease voice recognition accuracy Inadvertent tobacco grader errors may occur 06/04/2024 BMI 35.0-35.9,adult (ICD-10 - Z68.35) #Weight Management 06/04/2024 Patient is thriving and continual improvements in body composition including fat mass Continue 15 mg dosing Total time spent today was 30 minutes [...] software and direct typing Please excuse inadvertent tobacco grader or typing errors, or uncorrected word substitutions Although every attempt has been made by the provider to proofread this document, occasional misspellings and typographical errors may still be present Due to the previous pandemic, and the use of personal protective equipment (PPE) This may decrease voice recognition accuracy Inadvertent tobacco grader errors may occur 04/17/2024 BMI 35.0-35.9,adult (ICD-10 - Z68.35) #Weight Management 04/17/2024 Continue fiber and water We gave him some Linzess samples Body composition analysis improving Continue 15 mg dosing Total time spent today was 30 minutes [...] software and direct typing Please excuse inadvertent tobacco grader or typing errors, or uncorrected word substitutions Although every attempt has been made by the provider to proofread this document, occasional misspellings and typographical errors may still be present Due to the previous pandemic, and the use of personal protective equipment (PPE) This may decrease voice recognition accuracy Inadvertent tobacco grader errors may occur 03/06/2024 BMI 38.0-38.9,adult (ICD-10 - Z68.38) #Weight Management 03/06/2024 Continuing to improve Body composition analysis improving Continue 15 mg dosing Total time spent today was 30 minutes of which greater than 50% was spent on coordinating and counseling Patient has been found to be obese with a BMI of (38). Patient has class (3) obesity. We are a board certified obesity and weight management practice Patient has trialed behavioral modification, dietary restrictions and exercise for a minimum of 6 months The most recent [place] [employer]ocrinologists and [place] [employer] guidelines recommend patients who have overweight BMI or obesity BMI, who also have metabolic syndrome, prediabetes, HLD, and other comorbidities or at risk of developing type 2 diabetes should aim for a weight loss goal of at least 10% of the baseline body weight Patient counseled regarding effects of GLP/GIP-1 agonists, and other FDA approved wgt loss meds with regards to a multifactorial approach of weight loss as mentioned above and not solely appetite suppression. Of note, some information is being carried forward from prior records for informational purposes only and is being cited so that efficiency, safety and quality of the patient's care is not compromised This note was prepared using voice recognition software and direct typing Please excuse inadvertent tobacco grader or typing errors, or uncorrected word substitutions Although every attempt has been made by the provider to proofread this document, occasional misspellings and typographical errors may still be present Due to the previous pandemic, and the use of personal protective equipment (PPE) This may decrease voice recognition accuracy Inadvertent tobacco grader errors may occur 01/19/2024 BMI 38.0-38.9,adult (ICD-10 - Z68.38) #Weight Management 01/19/2024 Thriving and has left the morbid obesity world Continue with dual incretin therapy Increased to 15 mg dosing Total time spent today was 30 minutes of which greater than 50% was spent on coordinating and counseling Patient has been found to be obese with a BMI of (38). Patient has class (3) obesity. We are a board certified obesity and weight management practice Patient has trialed behavioral modification, dietary restrictions and exercise for a minimum of 6 months The most recent [place] [employer]ocrinologists and [place] [employer] guidelines recommend patients who have overweight BMI or obesity BMI, who also have metabolic syndrome, prediabetes, HLD, and other comorbidities or at risk of developing type 2 diabetes should aim for a weight loss goal of at least 10% of the baseline body weight Patient counseled regarding effects of GLP/GIP-1 agonists, and other FDA approved wgt loss meds with regards to a multifactorial approach of weight loss as mentioned above and not solely appetite suppression. Of note, some information is being carried forward from prior records for informational purposes only and is being cited so that efficiency, safety and quality of the patient's care is not compromised This note was prepared using voice recognition software and direct typing Please excuse inadvertent tobacco grader or typing errors, or uncorrected word substitutions Although every attempt has been made by the provider to proofread this document, occasional misspellings and typographical errors may still be present Due to the previous pandemic, and the use of personal protective equipment (PPE) This may decrease voice recognition accuracy Inadvertent tobacco grader errors may occur 01/19/2024 Dietary counseling and surveillance (ICD-10 - Z71.3) #Weight Management 01/19/2024 Thriving and has left the morbid obesity world Continue with dual incretin therapy Increased to 15 mg dosing Total time spent today was 30 minutes of which greater than 50% was spent on coordinating and counseling Patient has been found to be obese with a BMI of (38). Patient has class (3) obesity. We are a board certified obesity and weight management practice Patient has trialed behavioral modification, dietary restrictions and exercise for a minimum of 6 months The most recent [place] [employer]ocrinologists and [place] [employer] guidelines recommend patients who have overweight BMI or obesity BMI, who also have metabolic syndrome, prediabetes, HLD, and other comorbidities or at risk of developing type 2 diabetes should aim for a weight loss goal of at least 10% of the baseline body weight Patient counseled regarding effects of GLP/GIP-1 agonists, and other FDA approved wgt loss meds with regards to a multifactorial approach of weight loss as mentioned above and not solely appetite suppression. Of note, some information is being carried forward from prior records for informational purposes only and is being cited so that efficiency, safety and quality of the patient's care is not compromised This note was prepared using voice recognition software and direct typing Please excuse inadvertent tobacco grader or typing errors, or uncorrected word substitutions Although every attempt has been made by the provider to proofread this document, occasional misspellings and typographical errors may still be present Due to the previous pandemic, and the use of personal protective equipment (PPE) This may decrease voice recognition accuracy Inadvertent tobacco grader errors may occur 03/06/2024 Dietary counseling and surveillance (ICD-10 - Z71.3) #Weight Management 03/06/2024 Continuing to improve Body composition analysis improving Continue 15 mg dosing Total time spent today was 30 minutes of which greater than 50% was spent on coordinating and counseling Patient has been found to be obese with a BMI of (38). Patient has class (3) obesity. We are a board certified obesity and weight management practice Patient has trialed behavioral modification, dietary restrictions and exercise for a minimum of 6 months The most recent [place] [employer] and [employer] guidelines recommend patients who have overweight BMI or obesity BMI, who also have metabolic syndrome, prediabetes, HLD, and other comorbidities or at risk of developing type 2 diabetes should aim for a weight loss goal of at least 10% of the baseline body weight Patient counseled regarding effects of GLP/GIP-1 agonists, and other FDA approved wgt loss meds with regards to a multifactorial approach of weight loss as mentioned above and not solely appetite suppression. Of note, some information is being carried forward from prior records for informational purposes only and is being cited so that efficiency, safety and quality of the patient's care is not compromised This note was prepared using voice recognition software and direct typing Please excuse inadvertent tobacco grader or typing errors, or uncorrected word substitutions Although every attempt has been made by the provider to proofread this document, occasional misspellings and typographical errors may still be present Due to the previous pandemic, and the use of personal protective equipment (PPE) This may decrease voice recognition accuracy Inadvertent tobacco grader errors may occur 04/17/2024 Dietary counseling and surveillance (ICD-10 - Z71.3) #Weight Management 04/17/2024 Continue fiber and water We gave him some Linzess samples Body composition analysis improving Continue 15 mg dosing Total time spent today was 30 minutes [...] software and direct typing Please excuse inadvertent tobacco grader or typing errors, or uncorrected word substitutions Although every attempt has been made by the provider to proofread this document, occasional misspellings and typographical errors may still be present Due to the previous pandemic, and the use of personal protective equipment (PPE) This may decrease voice recognition accuracy Inadvertent tobacco grader errors may occur 06/04/2024 Dietary counseling and surveillance (ICD-10 - Z71.3) #Weight Management 06/04/2024 Patient is thriving and continual improvements in body composition including fat mass Continue 15 mg dosing Total time spent today was 30 minutes [...] software and direct typing Please excuse inadvertent tobacco grader or typing errors, or uncorrected word substitutions Although every attempt has been made by the provider to proofread this document, occasional misspellings and typographical errors may still be present Due to the previous pandemic, and the use of personal protective equipment (PPE) This may decrease voice recognition accuracy Inadvertent tobacco grader errors may occur 07/17/2024 Dietary counseling and surveillance (ICD-10 - Z71.3) #Weight Management 07/17/2024 Patient is thriving and continual improvements in body composition including fat mass Continue 15 mg dosing Status post venous procedure last month at [facility] Total time spent today was 30 [...] software and direct typing Please excuse inadvertent tobacco grader or typing errors, or uncorrected word substitutions Although every attempt has been made by the provider to proofread this document, occasional misspellings and typographical errors may still be present Due to the previous pandemic, and the use of personal protective equipment (PPE) This may decrease voice recognition accuracy Inadvertent tobacco grader errors may occur 09/09/2024 Dietary counseling and surveillance (ICD-10 - Z71.3) #Weight Management 09/09/2024 Patient is thriving and continual improvements in body composition Continue 15 mg dosing Will be due for updated labs later this fall Total time spent today was 30 minutes [...] software and direct typing Please excuse inadvertent tobacco grader or typing errors, or uncorrected word substitutions Although every attempt has been made by the provider to proofread this document, occasional misspellings and typographical errors may still be present Due to the previous pandemic, and the use of personal protective equipment (PPE) This may decrease voice recognition accuracy Inadvertent tobacco grader errors may occur 10/11/2024 Other obesity due to excess calories (ICD-10 - E66.09) 10/22/2024 Dietary counseling and surveillance (ICD-10 - Z71.3) #Weight Management 10/22/2024 Patient is thriving and continual improvements in body composition Continue 15 mg dosing Labs are reviewed Total time spent today was 30 minutes [...] software and direct typing Please excuse inadvertent tobacco grader or typing errors, or uncorrected word substitutions Although every attempt has been made by the provider to proofread this document, occasional misspellings and typographical errors may still be present Due to the previous pandemic, and the use of personal protective equipment (PPE) This may decrease voice recognition accuracy Inadvertent tobacco grader errors may occur 09/09/2024 PAF (paroxysmal atrial fibrillation) (ICD-10 - I48.0) #Weight Management 09/09/2024 Patient is thriving and continual improvements in body composition Continue 15 mg dosing Will be due for updated labs later this fall Total time spent today was 30 minutes [...] software and direct typing Please excuse inadvertent tobacco grader or typing errors, or uncorrected word substitutions Although every attempt has been made by the provider to proofread this document, occasional misspellings and typographical errors may still be present Due to the previous pandemic, and the use of personal protective equipment (PPE) This may decrease voice recognition accuracy Inadvertent tobacco grader errors may occur 10/22/2024 PAF (paroxysmal atrial fibrillation) (ICD-10 - I48.0) #Weight Management 10/22/2024 Patient is thriving and continual improvements in body composition Continue 15 mg dosing Labs are reviewed Total time spent today was 30 minutes [...] software and direct typing Please excuse inadvertent tobacco grader or typing errors, or uncorrected word substitutions Although every attempt has been made by the provider to proofread this document, occasional misspellings and typographical errors may still be present Due to the previous pandemic, and the use of personal protective equipment (PPE) This may decrease voice recognition accuracy Inadvertent tobacco grader errors may occur 06/04/2024 PAF (paroxysmal atrial fibrillation) (ICD-10 - I48.0) #Weight Management 06/04/2024 Patient is thriving and continual improvements in body composition including fat mass Continue 15 mg dosing Total time spent today was 30 minutes [...] software and direct typing Please excuse inadvertent tobacco grader or typing errors, or uncorrected word substitutions Although every attempt has been made by the provider to proofread this document, occasional misspellings and typographical errors may still be present Due to the previous pandemic, and the use of personal protective equipment (PPE) This may decrease voice recognition accuracy Inadvertent tobacco grader errors may occur 07/17/2024 PAF (paroxysmal atrial fibrillation) (ICD-10 - I48.0) #Weight Management 07/17/2024 Patient is thriving and continual improvements in body composition including fat mass Continue 15 mg dosing Status post venous procedure last month at [facility] Total time spent today was 30 [...] software and direct typing Please excuse inadvertent tobacco grader or typing errors, or uncorrected word substitutions Although every attempt has been made by the provider to proofread this document, occasional misspellings and typographical errors may still be present Due to the previous pandemic, and the use of personal protective equipment (PPE) This may decrease voice recognition accuracy Inadvertent tobacco grader errors may occur 04/17/2024 PAF (paroxysmal atrial fibrillation) (ICD-10 - I48.0) #Weight Management 04/17/2024 Continue fiber and water We gave him some Linzess samples Body composition analysis improving Continue 15 mg dosing Total time spent today was 30 minutes [...] software and direct typing Please excuse inadvertent tobacco grader or typing errors, or uncorrected word substitutions Although every attempt has been made by the provider to proofread this document, occasional misspellings and typographical errors may still be present Due to the previous pandemic, and the use of personal protective equipment (PPE) This may decrease voice recognition accuracy Inadvertent tobacco grader errors may occur 03/06/2024 PAF (paroxysmal atrial fibrillation) (ICD-10 - I48.0) #Weight Management 03/06/2024 Continuing to improve Body composition analysis improving Continue 15 mg dosing Total time spent today was 30 minutes of which greater than 50% was spent on coordinating and counseling Patient has been found to be obese with a BMI of (38). Patient has class (3) obesity. We are a board certified obesity and weight management practice Patient has trialed behavioral modification, dietary restrictions and exercise for a minimum of 6 months The most recent [place] [employer] and [employer] guidelines recommend patients who have overweight BMI or obesity BMI, who also have metabolic syndrome, prediabetes, HLD, and other comorbidities or at risk of developing type 2 diabetes should aim for a weight loss goal of at least 10% of the baseline body weight Patient counseled regarding effects of GLP/GIP-1 agonists, and other FDA approved wgt loss meds with regards to a multifactorial approach of weight loss as mentioned above and not solely appetite suppression. Of note, some information is being carried forward from prior records for informational purposes only and is being cited so that efficiency, safety and quality of the patient's care is not compromised This note was prepared using voice recognition software and direct typing Please excuse inadvertent tobacco grader or typing errors, or uncorrected word substitutions Although every attempt has been made by the provider to proofread this document, occasional misspellings and typographical errors may still be present Due to the previous pandemic, and the use of personal protective equipment (PPE) This may decrease voice recognition accuracy Inadvertent tobacco grader errors may occur 01/19/2024 PAF (paroxysmal atrial fibrillation) (ICD-10 - I48.0) #Weight Management 01/19/2024 Thriving and has left the morbid obesity world Continue with dual incretin therapy Increased to 15 mg dosing Total time spent today was 30 minutes of which greater than 50% was spent on coordinating and counseling Patient has been found to be obese with a BMI of (38). Patient has class (3) obesity. We are a board certified obesity and weight management practice Patient has trialed behavioral modification, dietary restrictions and exercise for a minimum of 6 months The most recent [place] [employer] and [employer] guidelines recommend patients who have overweight BMI or obesity BMI, who also have metabolic syndrome, prediabetes, HLD, and other comorbidities or at risk of developing type 2 diabetes should aim for a weight loss goal of at least 10% of the baseline body weight Patient counseled regarding effects of GLP/GIP-1 agonists, and other FDA approved wgt loss meds with regards to a multifactorial approach of weight loss as mentioned above and not solely appetite suppression. Of note, some information is being carried forward from prior records for informational purposes only and is being cited so that efficiency, safety and quality of the patient's care is not compromised This note was prepared using voice recognition software and direct typing Please excuse inadvertent tobacco grader or typing errors, or uncorrected word substitutions Although every attempt has been made by the provider to proofread this document, occasional misspellings and typographical errors may still be present Due to the previous pandemic, and the use of personal protective equipment (PPE) This may decrease voice recognition accuracy Inadvertent tobacco grader errors may occur 01/19/2024 Pure hypercholestero lemia, unspecified (ICD-10 - E78.00) #Weight Management 01/19/2024 Thriving and has left the morbid obesity world Continue with dual incretin therapy Increased to 15 mg dosing Total time spent today was 30 minutes of which greater than 50% was spent on coordinating and counseling Patient has been found to be obese with a BMI of (38). Patient has class (3) obesity. We are a board certified obesity and weight management practice Patient has trialed behavioral modification, dietary restrictions and exercise for a minimum of 6 months The most recent [place] [employer] and [employer] [employer] guidelines recommend patients who have overweight BMI or obesity BMI, who also have metabolic syndrome, prediabetes, HLD, and other comorbidities or at risk of developing type 2 diabetes should aim for a weight loss goal of at least 10% of the baseline body weight Patient counseled regarding effects of GLP/GIP-1 agonists, and other FDA approved wgt loss meds with regards to a multifactorial approach of weight loss as mentioned above and not solely appetite suppression. Of note, some information is being carried forward from prior records for informational purposes only and is being cited so that efficiency, safety and quality of the patient's care is not compromised This note was prepared using voice recognition software and direct typing Please excuse inadvertent tobacco grader or typing errors, or uncorrected word substitutions Although every attempt has been made by the provider to proofread this document, occasional misspellings and typographical errors may still be present Due to the previous pandemic, and the use of personal protective equipment (PPE) This may decrease voice recognition accuracy Inadvertent tobacco grader errors may occur 03/06/2024 Pure hypercholestero lemia, unspecified (ICD-10 - E78.00) #Weight Management 03/06/2024 Continuing to improve Body composition analysis improving Continue 15 mg dosing Total time spent today was 30 minutes of which greater than 50% was spent on coordinating and counseling Patient has been found to be obese with a BMI of (38). Patient has class (3) obesity. We are a board certified obesity and weight management practice Patient has trialed behavioral modification, dietary restrictions and exercise for a minimum of 6 months The most recent [place] [employer] and [employer] [employer] guidelines recommend patients who have overweight BMI or obesity BMI, who also have metabolic syndrome, prediabetes, HLD, and other comorbidities or at risk of developing type 2 diabetes should aim for a weight loss goal of at least 10% of the baseline body weight Patient counseled regarding effects of GLP/GIP-1 agonists, and other FDA approved wgt loss meds with regards to a multifactorial approach of weight loss as mentioned above and not solely appetite suppression. Of note, some information is being carried forward from prior records for informational purposes only and is being cited so that efficiency, safety and quality of the patient's care is not compromised This note was prepared using voice recognition software and direct typing Please excuse inadvertent tobacco grader or typing errors, or uncorrected word substitutions Although every attempt has been made by the provider to proofread this document, occasional misspellings and typographical errors may still be present Due to the previous pandemic, and the use of personal protective equipment (PPE) This may decrease voice recognition accuracy Inadvertent tobacco grader errors may occur 04/17/2024 Pure hypercholestero lemia, unspecified (ICD-10 - E78.00) #Weight Management 04/17/2024 Continue fiber and water We gave him some Linzess samples Body composition analysis improving Continue 15 mg dosing Total time spent today was 30 minutes [...] software and direct typing Please excuse inadvertent tobacco grader or typing errors, or uncorrected word substitutions Although every attempt has been made by the provider to proofread this document, occasional misspellings and typographical errors may still be present Due to the previous pandemic, and the use of personal protective equipment (PPE) This may decrease voice recognition accuracy Inadvertent tobacco grader errors may occur 06/04/2024 Pure hypercholestero lemia, unspecified (ICD-10 - E78.00) #Weight Management 06/04/2024 Patient is thriving and continual improvements in body composition including fat mass Continue 15 mg dosing Total time spent today was 30 minutes [...] software and direct typing Please excuse inadvertent tobacco grader or typing errors, or uncorrected word substitutions Although every attempt has been made by the provider to proofread this document, occasional misspellings and typographical errors may still be present Due to the previous pandemic, and the use of personal protective equipment (PPE) This may decrease voice recognition accuracy Inadvertent tobacco grader errors may occur 07/17/2024 Pure hypercholestero lemia, unspecified (ICD-10 - E78.00) #Weight Management 07/17/2024 Patient is thriving and continual improvements in body composition including fat mass Continue 15 mg dosing Status post venous procedure last month at [facility] Total time spent today was 30 [...] software and direct typing Please excuse inadvertent tobacco grader or typing errors, or uncorrected word substitutions Although every attempt has been made by the provider to proofread this document, occasional misspellings and typographical errors may still be present Due to the previous pandemic, and the use of personal protective equipment (PPE) This may decrease voice recognition accuracy Inadvertent tobacco grader errors may occur 09/09/2024 Pure hypercholestero lemia, unspecified (ICD-10 - E78.00) #Weight Management 09/09/2024 Patient is thriving and continual improvements in body composition Continue 15 mg dosing Will be due for updated labs later this fall Total time spent today was 30 minutes [...] software and direct typing Please excuse inadvertent tobacco grader or typing errors, or uncorrected word substitutions Although every attempt has been made by the provider to proofread this document, occasional misspellings and typographical errors may still be present Due to the previous pandemic, and the use of personal protective equipment (PPE) This may decrease voice recognition accuracy Inadvertent tobacco grader errors may occur 10/22/2024 Pure hypercholestero lemia, unspecified (ICD-10 - E78.00) #Weight Management 10/22/2024 Patient is thriving and continual improvements in body composition Continue 15 mg dosing Labs are reviewed Total time spent today was 30 minutes [...] software and direct typing Please excuse inadvertent tobacco grader or typing errors, or uncorrected word substitutions Although every attempt has been made by the provider to proofread this document, occasional misspellings and typographical errors may still be present Due to the previous pandemic, and the use of personal protective equipment (PPE) This may decrease voice recognition accuracy Inadvertent tobacco grader errors may occur 10/22/2024 DONNA (obstructive sleep apnea) (ICD-10 - G47.33) #Weight Management 10/22/2024 Patient is thriving and continual improvements in body composition Continue 15 mg dosing Labs are reviewed Total time spent today was 30 minutes [...] software and direct typing Please excuse inadvertent tobacco grader or typing errors, or uncorrected word substitutions Although every attempt has been made by the provider to proofread this document, occasional misspellings and typographical errors may still be present Due to the previous pandemic, and the use of personal protective equipment (PPE) This may decrease voice recognition accuracy Inadvertent tobacco grader errors may occur 09/09/2024 DONNA (obstructive sleep apnea) (ICD-10 - G47.33) #Weight Management 09/09/2024 Patient is thriving and continual improvements in body composition Continue 15 mg dosing Will be due for updated labs later this fall Total time spent today was 30 minutes [...] software and direct typing Please excuse inadvertent tobacco grader or typing errors, or uncorrected word substitutions Although every attempt has been made by the provider to proofread this document, occasional misspellings and typographical errors may still be present Due to the previous pandemic, and the use of personal protective equipment (PPE) This may decrease voice recognition accuracy Inadvertent tobacco grader errors may occur 07/17/2024 DONNA (obstructive sleep apnea) (ICD-10 - G47.33) #Weight Management 07/17/2024 Patient is thriving and continual improvements in body composition including fat mass Continue 15 mg dosing Status post venous procedure last month at [facility] Total time spent today was 30 [...] software and direct typing Please excuse inadvertent tobacco grader or typing errors, or uncorrected word substitutions Although every attempt has been made by the provider to proofread this document, occasional misspellings and typographical errors may still be present Due to the previous pandemic, and the use of personal protective equipment (PPE) This may decrease voice recognition accuracy Inadvertent tobacco grader errors may occur 06/04/2024 DONNA (obstructive sleep apnea) (ICD-10 - G47.33) #Weight Management 06/04/2024 Patient is thriving and continual improvements in body composition including fat mass Continue 15 mg dosing Total time spent today was 30 minutes [...] software and direct typing Please excuse inadvertent tobacco grader or typing errors, or uncorrected word substitutions Although every attempt has been made by the provider to proofread this document, occasional misspellings and typographical errors may still be present Due to the previous pandemic, and the use of personal protective equipment (PPE) This may decrease voice recognition accuracy Inadvertent tobacco grader errors may occur 04/17/2024 DONNA (obstructive sleep apnea) (ICD-10 - G47.33) #Weight Management 04/17/2024 Continue fiber and water We gave him some Linzess samples Body composition analysis improving Continue 15 mg dosing Total time spent today was 30 minutes [...] software and direct typing Please excuse inadvertent tobacco grader or typing errors, or uncorrected word substitutions Although every attempt has been made by the provider to proofread this document, occasional misspellings and typographical errors may still be present Due to the previous pandemic, and the use of personal protective equipment (PPE) This may decrease voice recognition accuracy Inadvertent tobacco grader errors may occur 03/06/2024 DONNA (obstructive sleep apnea) (ICD-10 - G47.33) #Weight Management 03/06/2024 Continuing to improve Body composition analysis improving Continue 15 mg dosing Total time spent today was 30 minutes of which greater than 50% was spent on coordinating and counseling Patient has been found to be obese with a BMI of (38). Patient has class (3) obesity. We are a board certified obesity and weight management practice Patient has trialed behavioral modification, dietary restrictions and exercise for a minimum of 6 months The most recent [place] [employer] and [employer] guidelines recommend patients who have overweight BMI or obesity BMI, who also have metabolic syndrome, prediabetes, HLD, and other comorbidities or at risk of developing type 2 diabetes should aim for a weight loss goal of at least 10% of the baseline body weight Patient counseled regarding effects of GLP/GIP-1 agonists, and other FDA approved wgt loss meds with regards to a multifactorial approach of weight loss as mentioned above and not solely appetite suppression. Of note, some information is being carried forward from prior records for informational purposes only and is being cited so that efficiency, safety and quality of the patient's care is not compromised This note was prepared using voice recognition software and direct typing Please excuse inadvertent tobacco grader or typing errors, or uncorrected word substitutions Although every attempt has been made by the provider to proofread this document, occasional misspellings and typographical errors may still be present Due to the previous pandemic, and the use of personal protective equipment (PPE) This may decrease voice recognition accuracy Inadvertent tobacco grader errors may occur 01/19/2024 DONNA (obstructive sleep apnea) (ICD-10 - G47.33) #Weight Management 01/19/2024 Thriving and has left the morbid obesity world Continue with dual incretin therapy Increased to 15 mg dosing Total time spent today was 30 minutes of which greater than 50% was spent on coordinating and counseling Patient has been found to be obese with a BMI of (38). Patient has class (3) obesity. We are a board certified obesity and weight management practice Patient has trialed behavioral modification, dietary restrictions and exercise for a minimum of 6 months The most recent [place] [employer] and [employer] guidelines recommend patients who have overweight BMI or obesity BMI, who also have metabolic syndrome, prediabetes, HLD, and other comorbidities or at risk of developing type 2 diabetes should aim for a weight loss goal of at least 10% of the baseline body weight Patient counseled regarding effects of GLP/GIP-1 agonists, and other FDA approved wgt loss meds with regards to a multifactorial approach of weight loss as mentioned above and not solely appetite suppression. Of note, some information is being carried forward from prior records for informational purposes only and is being cited so that efficiency, safety and quality of the patient's care is not compromised This note was prepared using voice recognition software and direct typing Please excuse inadvertent tobacco grader or typing errors, or uncorrected word substitutions Although every attempt has been made by the provider to proofread this document, occasional misspellings and typographical errors may still be present Due to the previous pandemic, and the use of personal protective equipment (PPE) This may decrease voice recognition accuracy Inadvertent tobacco grader errors may occur 01/19/2024 Prediabetes (ICD-10 - R73.03) #Weight Management 01/19/2024 Thriving and has left the morbid obesity world Continue with dual incretin therapy Increased to 15 mg dosing Total time spent today was 30 minutes of which greater than 50% was spent on coordinating and counseling Patient has been found to be obese with a BMI of (38). Patient has class (3) obesity. We are a board certified obesity and weight management practice Patient has trialed behavioral modification, dietary restrictions and exercise for a minimum of 6 months The most recent [place] [employer] and [employer] guidelines recommend patients who have overweight BMI or obesity BMI, who also have metabolic syndrome, prediabetes, HLD, and other comorbidities or at risk of developing type 2 diabetes should aim for a weight loss goal of at least 10% of the baseline body weight Patient counseled regarding effects of GLP/GIP-1 agonists, and other FDA approved wgt loss meds with regards to a multifactorial approach of weight loss as mentioned above and not solely appetite suppression. Of note, some information is being carried forward from prior records for informational purposes only and is being cited so that efficiency, safety and quality of the patient's care is not compromised This note was prepared using voice recognition software and direct typing Please excuse inadvertent tobacco grader or typing errors, or uncorrected word substitutions Although every attempt has been made by the provider to proofread this document, occasional misspellings and typographical errors may still be present Due to the previous pandemic, and the use of personal protective equipment (PPE) This may decrease voice recognition accuracy Inadvertent tobacco grader errors may occur 03/06/2024 Prediabetes (ICD-10 - R73.03) #Weight Management 03/06/2024 Continuing to improve Body composition analysis improving Continue 15 mg dosing Total time spent today was 30 minutes of which greater than 50% was spent on coordinating and counseling Patient has been found to be obese with a BMI of (38). Patient has class (3) obesity. We are a board certified obesity and weight management practice Patient has trialed behavioral modification, dietary restrictions and exercise for a minimum of 6 months The most recent [place] [employer] and [employer] guidelines recommend patients who have overweight BMI or obesity BMI, who also have metabolic syndrome, prediabetes, HLD, and other comorbidities or at risk of developing type 2 diabetes should aim for a weight loss goal of at least 10% of the baseline body weight Patient counseled regarding effects of GLP/GIP-1 agonists, and other FDA approved wgt loss meds with regards to a multifactorial approach of weight loss as mentioned above and not solely appetite suppression. Of note, some information is being carried forward from prior records for informational purposes only and is being cited so that efficiency, safety and quality of the patient's care is not compromised This note was prepared using voice recognition software and direct typing Please excuse inadvertent tobacco grader or typing errors, or uncorrected word substitutions Although every attempt has been made by the provider to proofread this document, occasional misspellings and typographical errors may still be present Due to the previous pandemic, and the use of personal protective equipment (PPE) This may decrease voice recognition accuracy Inadvertent tobacco grader errors may occur 04/17/2024 Prediabetes (ICD-10 - R73.03) #Weight Management 04/17/2024 Continue fiber and water We gave him some Linzess samples Body composition analysis improving Continue 15 mg dosing Total time spent today was 30 minutes [...] software and direct typing Please excuse inadvertent tobacco grader or typing errors, or uncorrected word substitutions Although every attempt has been made by the provider to proofread this document, occasional misspellings and typographical errors may still be present Due to the previous pandemic, and the use of personal protective equipment (PPE) This may decrease voice recognition accuracy Inadvertent tobacco grader errors may occur 07/17/2024 Prediabetes (ICD-10 - R73.03) #Weight Management 07/17/2024 Patient is thriving and continual improvements in body composition including fat mass Continue 15 mg dosing Status post venous procedure last month at [facility] Total time spent today was 30 [...] software and direct typing Please excuse inadvertent tobacco grader or typing errors, or uncorrected word substitutions Although every attempt has been made by the provider to proofread this document, occasional misspellings and typographical errors may still be present Due to the previous pandemic, and the use of personal protective equipment (PPE) This may decrease voice recognition accuracy Inadvertent tobacco grader errors may occur 06/04/2024 Prediabetes (ICD-10 - R73.03) #Weight Management 06/04/2024 Patient is thriving and continual improvements in body composition including fat mass Continue 15 mg dosing Total time spent today was 30 minutes [...] software and direct typing Please excuse inadvertent tobacco grader or typing errors, or uncorrected word substitutions Although every attempt has been made by the provider to proofread this document, occasional misspellings and typographical errors may still be present Due to the previous pandemic, and the use of personal protective equipment (PPE) This may decrease voice recognition accuracy Inadvertent tobacco grader errors may occur 09/09/2024 Prediabetes (ICD-10 - R73.03) #Weight Management 09/09/2024 Patient is thriving and continual improvements in body composition Continue 15 mg dosing Will be due for updated labs later this fall Total time spent today was 30 minutes [...] software and direct typing Please excuse inadvertent tobacco grader or typing errors, or uncorrected word substitutions Although every attempt has been made by the provider to proofread this document, occasional misspellings and typographical errors may still be present Due to the previous pandemic, and the use of personal protective equipment (PPE) This may decrease voice recognition accuracy Inadvertent tobacco grader errors may occur 10/22/2024 Prediabetes (ICD-10 - R73.03) #Weight Management 10/22/2024 Patient is thriving and continual improvements in body composition Continue 15 mg dosing Labs are reviewed Total time spent today was 30 minutes [...] software and direct typing Please excuse inadvertent tobacco grader or typing errors, or uncorrected word substitutions Although every attempt has been made by the provider to proofread this document, occasional misspellings and typographical errors may still be present Due to the previous pandemic, and the use of personal protective equipment (PPE) This may decrease voice recognition accuracy Inadvertent tobacco grader errors may occur 10/22/2024 Type 2 diabetes mellitus without complication, without long-term current use of insulin (ICD-10 - E11.9) #Weight Management 10/22/2024 Patient is thriving and continual improvements in body composition Continue 15 mg dosing Labs are reviewed Total time spent today was 30 minutes [...] software and direct typing Please excuse inadvertent tobacco grader or typing errors, or uncorrected word substitutions Although every attempt has been made by the provider to proofread this document, occasional misspellings and typographical errors may still be present Due to the previous pandemic, and the use of personal protective equipment (PPE) This may decrease voice recognition accuracy Inadvertent tobacco grader errors may occur 09/09/2024 Anemia due to vitamin B12 deficiency, unspecified B12 deficiency type (ICD-10 - D51.9) #Weight Management 09/09/2024 Patient is thriving and continual improvements in body composition Continue 15 mg dosing Will be due for updated labs later this fall Total time spent today was 30 minutes [...] software and direct typing Please excuse inadvertent tobacco grader or typing errors, or uncorrected word substitutions Although every attempt has been made by the provider to proofread this document, occasional misspellings and typographical errors may still be present Due to the previous pandemic, and the use of personal protective equipment (PPE) This may decrease voice recognition accuracy Inadvertent tobacco grader errors may occur 07/17/2024 Anemia due to vitamin B12 deficiency, unspecified B12 deficiency type (ICD-10 - D51.9) #Weight Management 07/17/2024 Patient is thriving and continual improvements in body composition including fat mass Continue 15 mg dosing Status post venous procedure last month at [facility] Total time spent today was 30 [...] software and direct typing Please excuse inadvertent tobacco grader or typing errors, or uncorrected word substitutions Although every attempt has been made by the provider to proofread this document, occasional misspellings and typographical errors may still be present Due to the previous pandemic, and the use of personal protective equipment (PPE) This may decrease voice recognition accuracy Inadvertent tobacco grader errors may occur 03/06/2024 Anemia due to vitamin B12 deficiency, unspecified B12 deficiency type (ICD-10 - D51.9) #Weight Management 03/06/2024 Continuing to improve Body composition analysis improving Continue 15 mg dosing Total time spent today was 30 minutes of which greater than 50% was spent on coordinating and counseling Patient has been found to be obese with a BMI of (38). Patient has class (3) obesity. We are a board certified obesity and weight management practice Patient has trialed behavioral modification, dietary restrictions and exercise for a minimum of 6 months The most recent [place] [employer] and [employer] guidelines recommend patients who have overweight BMI or obesity BMI, who also have metabolic syndrome, prediabetes, HLD, and other comorbidities or at risk of developing type 2 diabetes should aim for a weight loss goal of at least 10% of the baseline body weight Patient counseled regarding effects of GLP/GIP-1 agonists, and other FDA approved wgt loss meds with regards to a multifactorial approach of weight loss as mentioned above and not solely appetite suppression. Of note, some information is being carried forward from prior records for informational purposes only and is being cited so that efficiency, safety and quality of the patient's care is not compromised This note was prepared using voice recognition software and direct typing Please excuse inadvertent tobacco grader or typing errors, or uncorrected word substitutions Although every attempt has been made by the provider to proofread this document, occasional misspellings and typographical errors may still be present Due to the previous pandemic, and the use of personal protective equipment (PPE) This may decrease voice recognition accuracy Inadvertent tobacco grader errors may occur 04/17/2024 Anemia due to vitamin B12 deficiency, unspecified B12 deficiency type (ICD-10 - D51.9) #Weight Management 04/17/2024 Continue fiber and water We gave him some Linzess samples Body composition analysis improving Continue 15 mg dosing Total time spent today was 30 minutes [...] software and direct typing Please excuse inadvertent tobacco grader or typing errors, or uncorrected word substitutions Although every attempt has been made by the provider to proofread this document, occasional misspellings and typographical errors may still be present Due to the previous pandemic, and the use of personal protective equipment (PPE) This may decrease voice recognition accuracy Inadvertent tobacco grader errors may occur 06/04/2024 Anemia due to vitamin B12 deficiency, unspecified B12 deficiency type (ICD-10 - D51.9) #Weight Management 06/04/2024 Patient is thriving and continual improvements in body composition including fat mass Continue 15 mg dosing Total time spent today was 30 minutes [...] software and direct typing Please excuse inadvertent tobacco grader or typing errors, or uncorrected word substitutions Although every attempt has been made by the provider to proofread this document, occasional misspellings and typographical errors may still be present Due to the previous pandemic, and the use of personal protective equipment (PPE) This may decrease voice recognition accuracy Inadvertent tobacco grader errors may occur 01/19/2024 Anemia due to vitamin B12 deficiency, unspecified B12 deficiency type (ICD-10 - D51.9) #Weight Management 01/19/2024 Thriving and has left the morbid obesity world Continue with dual incretin therapy Increased to 15 mg dosing Total time spent today was 30 minutes of which greater than 50% was spent on coordinating and counseling Patient has been found to be obese with a BMI of (38). Patient has class (3) obesity. We are a board certified obesity and weight management practice Patient has trialed behavioral modification, dietary restrictions and exercise for a minimum of 6 months The most recent [place] [employer] and [employer] guidelines recommend patients who have overweight BMI or obesity BMI, who also have metabolic syndrome, prediabetes, HLD, and other comorbidities or at risk of developing type 2 diabetes should aim for a weight loss goal of at least 10% of the baseline body weight Patient counseled regarding effects of GLP/GIP-1 agonists, and other FDA approved wgt loss meds with regards to a multifactorial approach of weight loss as mentioned above and not solely appetite suppression. Of note, some information is being carried forward from prior records for informational purposes only and is being cited so that efficiency, safety and quality of the patient's care is not compromised This note was prepared using voice recognition software and direct typing Please excuse inadvertent tobacco grader or typing errors, or uncorrected word substitutions Although every attempt has been made by the provider to proofread this document, occasional misspellings and typographical errors may still be present Due to the previous pandemic, and the use of personal protective equipment (PPE) This may decrease voice recognition accuracy Inadvertent tobacco grader errors may occur 01/19/2024 Type 2 diabetes mellitus without complication, without long-term current use of insulin (ICD-10 - E11.9) #Weight Management 01/19/2024 Thriving and has left the morbid obesity world Continue with dual incretin therapy Increased to 15 mg dosing Total time spent today was 30 minutes of which greater than 50% was spent on coordinating and counseling Patient has been found to be obese with a BMI of (38). Patient has class (3) obesity. We are a board certified obesity and weight management practice Patient has trialed behavioral modification, dietary restrictions and exercise for a minimum of 6 months The most recent [place] [employer] and [employer] guidelines recommend patients who have overweight BMI or obesity BMI, who also have metabolic syndrome, prediabetes, HLD, and other comorbidities or at risk of developing type 2 diabetes should aim for a weight loss goal of at least 10% of the baseline body weight Patient counseled regarding effects of GLP/GIP-1 agonists, and other FDA approved wgt loss meds with regards to a multifactorial approach of weight loss as mentioned above and not solely appetite suppression. Of note, some information is being carried forward from prior records for informational purposes only and is being cited so that efficiency, safety and quality of the patient's care is not compromised This note was prepared using voice recognition software and direct typing Please excuse inadvertent tobacco grader or typing errors, or uncorrected word substitutions Although every attempt has been made by the provider to proofread this document, occasional misspellings and typographical errors may still be present Due to the previous pandemic, and the use of personal protective equipment (PPE) This may decrease voice recognition accuracy Inadvertent tobacco grader errors may occur 04/17/2024 Type 2 diabetes mellitus without complication, without long-term current use of insulin (ICD-10 - E11.9) #Weight Management 04/17/2024 Continue fiber and water We gave him some Linzess samples Body composition analysis improving Continue 15 mg dosing Total time spent today was 30 minutes [...] software and direct typing Please excuse inadvertent tobacco grader or typing errors, or uncorrected word substitutions Although every attempt has been made by the provider to proofread this document, occasional misspellings and typographical errors may still be present Due to the previous pandemic, and the use of personal protective equipment (PPE) This may decrease voice recognition accuracy Inadvertent tobacco grader errors may occur 03/06/2024 Type 2 diabetes mellitus without complication, without long-term current use of insulin (ICD-10 - E11.9) #Weight Management 03/06/2024 Continuing to improve Body composition analysis improving Continue 15 mg dosing Total time spent today was 30 minutes of which greater than 50% was spent on coordinating and counseling Patient has been found to be obese with a BMI of (38). Patient has class (3) obesity. We are a board certified obesity and weight management practice Patient has trialed behavioral modification, dietary restrictions and exercise for a minimum of 6 months The most recent [place] [employer] and [employer] guidelines recommend patients who have overweight BMI or obesity BMI, who also have metabolic syndrome, prediabetes, HLD, and other comorbidities or at risk of developing type 2 diabetes should aim for a weight loss goal of at least 10% of the baseline body weight Patient counseled regarding effects of GLP/GIP-1 agonists, and other FDA approved wgt loss meds with regards to a multifactorial approach of weight loss as mentioned above and not solely appetite suppression. Of note, some information is being carried forward from prior records for informational purposes only and is being cited so that efficiency, safety and quality of the patient's care is not compromised This note was prepared using voice recognition software and direct typing Please excuse inadvertent tobacco grader or typing errors, or uncorrected word substitutions Although every attempt has been made by the provider to proofread this document, occasional misspellings and typographical errors may still be present Due to the previous pandemic, and the use of personal protective equipment (PPE) This may decrease voice recognition accuracy Inadvertent tobacco grader errors may occur 06/04/2024 Type 2 diabetes mellitus without complication, without long-term current use of insulin (ICD-10 - E11.9) #Weight Management 06/04/2024 Patient is thriving and continual improvements in body composition including fat mass Continue 15 mg dosing Total time spent today was 30 minutes [...] software and direct typing Please excuse inadvertent tobacco grader or typing errors, or uncorrected word substitutions Although every attempt has been made by the provider to proofread this document, occasional misspellings and typographical errors may still be present Due to the previous pandemic, and the use of personal protective equipment (PPE) This may decrease voice recognition accuracy Inadvertent tobacco grader errors may occur 07/17/2024 Type 2 diabetes mellitus without complication, without long-term current use of insulin (ICD-10 - E11.9) #Weight Management 07/17/2024 Patient is thriving and continual improvements in body composition including fat mass Continue 15 mg dosing Status post venous procedure last month at [facility] Total time spent today was 30 [...] software and direct typing Please excuse inadvertent tobacco grader or typing errors, or uncorrected word substitutions Although every attempt has been made by the provider to proofread this document, occasional misspellings and typographical errors may still be present Due to the previous pandemic, and the use of personal protective equipment (PPE) This may decrease voice recognition accuracy Inadvertent tobacco grader errors may occur 09/09/2024 Type 2 diabetes mellitus without complication, without long-term current use of insulin (ICD-10 - E11.9) #Weight Management 09/09/2024 Patient is thriving and continual improvements in body composition Continue 15 mg dosing Will be due for updated labs later this fall Total time spent today was 30 minutes [...] software and direct typing Please excuse inadvertent tobacco grader or typing errors, or uncorrected word substitutions Although every attempt has been made by the provider to proofread this document, occasional misspellings and typographical errors may still be present Due to the previous pandemic, and the use of personal protective equipment (PPE) This may decrease voice recognition accuracy Inadvertent tobacco grader errors may occur 10/22/2024 Encounter for examination of blood pressure without abnormal findings (ICD-10 - Z01.30) #Weight Management 10/22/2024 Patient is thriving and continual improvements in body composition Continue 15 mg dosing Labs are reviewed Total time spent today was 30 minutes [...] software and direct typing Please excuse inadvertent tobacco grader or typing errors, or uncorrected word substitutions Although every attempt has been made by the provider to proofread this document, occasional misspellings and typographical errors may still be present Due to the previous pandemic, and the use of personal protective equipment (PPE) This may decrease voice recognition accuracy Inadvertent tobacco grader errors may occur 09/09/2024 Encounter for examination of blood pressure without abnormal findings (ICD-10 - Z01.30) #Weight Management 09/09/2024 Patient is thriving and continual improvements in body composition Continue 15 mg dosing Will be due for updated labs later this fall Total time spent today was 30 minutes [...] software and direct typing Please excuse inadvertent tobacco grader or typing errors, or uncorrected word substitutions Although every attempt has been made by the provider to proofread this document, occasional misspellings and typographical errors may still be present Due to the previous pandemic, and the use of personal protective equipment (PPE) This may decrease voice recognition accuracy Inadvertent tobacco grader errors may occur 07/17/2024 Encounter for examination of blood pressure without abnormal findings (ICD-10 - Z01.30) #Weight Management 07/17/2024 Patient is thriving and continual improvements in body composition including fat mass Continue 15 mg dosing Status post venous procedure last month at [facility] Total time spent today was 30 [...] software and direct typing Please excuse inadvertent tobacco grader or typing errors, or uncorrected word substitutions Although every attempt has been made by the provider to proofread this document, occasional misspellings and typographical errors may still be present Due to the previous pandemic, and the use of personal protective equipment (PPE) This may decrease voice recognition accuracy Inadvertent tobacco grader errors may occur Plan Of Treatment Pending Test Test Name Order Date CBC (COMPLETE BLOOD COUNT) WITH DIFF 02/2023 COMPREHENSIVE METABOLIC PANEL 04/07/2023 HEMOGLOBIN A1C 04/07/2023 LIPID PANEL 04/07/2023 TSH 04/07/2023 URINALYSIS, COMPLETE 04/07/2023 LIPASE 04/07/2023 AMYLASE 04/07/2023 VITAMIN D, 1,25 DIHYDROXY LC/MS/MS 04/06 Next Appt Details Provider Name:LATOYA JOHNSON, 12/31/2024 09:45:00 AM, [address] [facility], [facility] [address], [place], [address], Insurance Providers Payer Name Payer Address Payer Phone Subscriber Number Group Number Insured Name Patient Relationship to Insured Coverage Start Date Coverage End Date [employer] or Options [address] [place] BOWS[place] [id number] Shaq Daley Self - patient is the insured Medical (General) History Medical History History ICD Code high blood pressure high cholesterol angina Arthritis anxiety depression Surgical History Surgery Date(Month/Year) appendectomy 1987 bariatric surgery 2014
== END 2024-12-27 09:44 | disposition home or self-care (01) ==
LOC: HO.HPHYS 09:18
PROVIDERS: PCP Internal Medicine; Visit Provider Physical Medicine & Rehabilitation
DX: M16.0 Bilateral primary osteoarthritis of hip (principal)
CPT/HCPCS: 20610; 77002

== ENCOUNTER 2025-02-03 14:26 | Outpatient (AMB) | payer OTHER, SELFPAY ==
--- OUTSIDE RECORDS SUMMARY | 2024-08-29 04:15 | XMS_ITS ---
Author Organization [facility] Address [address] [place] [address] Care Team Providers Care Grading Machine Feeder Name Role Phone JOHNLATOYA KIMBALL Unavailable [phone] Encounters Encounter Location Date Provider Diagnosis [facility] [address] [place] [address] 08/29/2024 LATOYA JOHNSON Other obesity due to excess calories E66.09 ; BMI 35.0-35.9,adult Z68.35 ; Dietary counseling and surveillance Z71.3 ; PAF (paroxysmal atrial fibrillation) I48.0 ; Pure hypercholesterolemia, unspecified E78.00 ; DONNA (obstructive sleep apnea) G47.33 ; Prediabetes R73.03 ; Anemia due to vitamin B12 deficiency, unspecified B12 deficiency type D51.9 ; Type 2 diabetes mellitus without complication, without long-term current use of insulin E11.9 and Encounter for examination of blood pressure without abnormal findings Z01.30 Assessments Encounter Date Diagnosis (ICD Code) Assessment Notes Treatment Notes Treatment Clinical Notes Section Notes 08/29/2024 Other obesity due to excess calories (ICD-10 - E66.09) #Weight Management 08/29/2024 Patient is thriving and continual improvements in body composition including fat mass Continue 15 mg dosing Status post venous procedure last month at [facility] Total time spent today was 30 minutes of which greater than 50% was spent on coordinating and counseling Patient has been found to be obese with a BMI of (35). Patient has class (2) obesity. We are a board certified obesity and weight management practice Of note, some information is being carried forward from prior records for informational purposes only and is being cited so that efficiency, safety and quality of the patient's care is not compromised This note was prepared using voice recognition software and direct typing Please excuse inadvertent granite installer or typing errors, or uncorrected word substitutions Although every attempt has been made by the provider to proofread this document, occasional misspellings and typographical errors may still be present Due to the previous pandemic, and the use of personal protective equipment (PPE) This may decrease voice recognition accuracy Inadvertent granite installer errors may occur 08/29/2024 BMI 35.0-35.9,adult (ICD-10 - Z68.35) #Weight Management 08/29/2024 Patient is thriving and continual improvements in body composition including fat mass Continue 15 mg dosing Status post venous procedure last month at [facility] Total time spent today was 30 minutes of which greater than 50% was spent on coordinating and counseling Patient has been found to be obese with a BMI of (35). Patient has class (2) obesity. We are a board certified obesity and weight management practice Of note, some information is being carried forward from prior records for informational purposes only and is being cited so that efficiency, safety and quality of the patient's care is not compromised This note was prepared using voice recognition software and direct typing Please excuse inadvertent granite installer or typing errors, or uncorrected word substitutions Although every attempt has been made by the provider to proofread this document, occasional misspellings and typographical errors may still be present Due to the previous pandemic, and the use of personal protective equipment (PPE) This may decrease voice recognition accuracy Inadvertent granite installer errors may occur 08/29/2024 Dietary counseling and surveillance (ICD-10 - Z71.3) #Weight Management 08/29/2024 Patient is thriving and continual improvements in body composition including fat mass Continue 15 mg dosing Status post venous procedure last month at [facility] Total time spent today was 30 minutes of which greater than 50% was spent on coordinating and counseling Patient has been found to be obese with a BMI of (35). Patient has class (2) obesity. We are a board certified obesity and weight management practice Of note, some information is being carried forward from prior records for informational purposes only and is being cited so that efficiency, safety and quality of the patient's care is not compromised This note was prepared using voice recognition software and direct typing Please excuse inadvertent granite installer or typing errors, or uncorrected word substitutions Although every attempt has been made by the provider to proofread this document, occasional misspellings and typographical errors may still be present Due to the previous pandemic, and the use of personal protective equipment (PPE) This may decrease voice recognition accuracy Inadvertent granite installer errors may occur 08/29/2024 PAF (paroxysmal atrial fibrillation) (ICD-10 - I48.0) #Weight Management 08/29/2024 Patient is thriving and continual improvements in body composition including fat mass Continue 15 mg dosing Status post venous procedure last month at [facility] Total time spent today was 30 minutes of which greater than 50% was spent on coordinating and counseling Patient has been found to be obese with a BMI of (35). Patient has class (2) obesity. We are a board certified obesity and weight management practice Of note, some information is being carried forward from prior records for informational purposes only and is being cited so that efficiency, safety and quality of the patient's care is not compromised This note was prepared using voice recognition software and direct typing Please excuse inadvertent granite installer or typing errors, or uncorrected word substitutions Although every attempt has been made by the provider to proofread this document, occasional misspellings and typographical errors may still be present Due to the previous pandemic, and the use of personal protective equipment (PPE) This may decrease voice recognition accuracy Inadvertent granite installer errors may occur 08/29/2024 Pure hypercholesterol emia, unspecified (ICD-10 - E78.00) #Weight Management 08/29/2024 Patient is thriving and continual improvements in body composition including fat mass Continue 15 mg dosing Status post venous procedure last month at [facility] Total time spent today was 30 minutes of which greater than 50% was spent on coordinating and counseling Patient has been found to be obese with a BMI of (35). Patient has class (2) obesity. We are a board certified obesity and weight management practice Of note, some information is being carried forward from prior records for informational purposes only and is being cited so that efficiency, safety and quality of the patient's care is not compromised This note was prepared using voice recognition software and direct typing Please excuse inadvertent granite installer or typing errors, or uncorrected word substitutions Although every attempt has been made by the provider to proofread this document, occasional misspellings and typographical errors may still be present Due to the previous pandemic, and the use of personal protective equipment (PPE) This may decrease voice recognition accuracy Inadvertent granite installer errors may occur 08/29/2024 DONNA (obstructive sleep apnea) (ICD-10 - G47.33) #Weight Management 08/29/2024 Patient is thriving and continual improvements in body composition including fat mass Continue 15 mg dosing Status post venous procedure last month at [facility] Total time spent today was 30 minutes of which greater than 50% was spent on coordinating and counseling Patient has been found to be obese with a BMI of (35). Patient has class (2) obesity. We are a board certified obesity and weight management practice Of note, some information is being carried forward from prior records for informational purposes only and is being cited so that efficiency, safety and quality of the patient's care is not compromised This note was prepared using voice recognition software and direct typing Please excuse inadvertent granite installer or typing errors, or uncorrected word substitutions Although every attempt has been made by the provider to proofread this document, occasional misspellings and typographical errors may still be present Due to the previous pandemic, and the use of personal protective equipment (PPE) This may decrease voice recognition accuracy Inadvertent granite installer errors may occur 08/29/2024 Prediabetes (ICD-10 - R73.03) #Weight Management 08/29/2024 Patient is thriving and continual improvements in body composition including fat mass Continue 15 mg dosing Status post venous procedure last month at [facility] Total time spent today was 30 minutes of which greater than 50% was spent on coordinating and counseling Patient has been found to be obese with a BMI of (35). Patient has class (2) obesity. We are a board certified obesity and weight management practice Of note, some information is being carried forward from prior records for informational purposes only and is being cited so that efficiency, safety and quality of the patient's care is not compromised This note was prepared using voice recognition software and direct typing Please excuse inadvertent granite installer or typing errors, or uncorrected word substitutions Although every attempt has been made by the provider to proofread this document, occasional misspellings and typographical errors may still be present Due to the previous pandemic, and the use of personal protective equipment (PPE) This may decrease voice recognition accuracy Inadvertent granite installer errors may occur 08/29/2024 Anemia due to vitamin B12 deficiency, unspecified B12 deficiency type (ICD-10 - D51.9) #Weight Management 08/29/2024 Patient is thriving and continual improvements in body composition including fat mass Continue 15 mg dosing Status post venous procedure last month at [facility] Total time spent today was 30 minutes of which greater than 50% was spent on coordinating and counseling Patient has been found to be obese with a BMI of (35). Patient has class (2) obesity. We are a board certified obesity and weight management practice Of note, some information is being carried forward from prior records for informational purposes only and is being cited so that efficiency, safety and quality of the patient's care is not compromised This note was prepared using voice recognition software and direct typing Please excuse inadvertent granite installer or typing errors, or uncorrected word substitutions Although every attempt has been made by the provider to proofread this document, occasional misspellings and typographical errors may still be present Due to the previous pandemic, and the use of personal protective equipment (PPE) This may decrease voice recognition accuracy Inadvertent granite installer errors may occur 08/29/2024 Type 2 diabetes mellitus without complication, without long-term current use of insulin (ICD-10 - E11.9) #Weight Management 08/29/2024 Patient is thriving and continual improvements in body composition including fat mass Continue 15 mg dosing Status post venous procedure last month at [facility] Total time spent today was 30 minutes of which greater than 50% was spent on coordinating and counseling Patient has been found to be obese with a BMI of (35). Patient has class (2) obesity. We are a board certified obesity and weight management practice Of note, some information is being carried forward from prior records for informational purposes only and is being cited so that efficiency, safety and quality of the patient's care is not compromised This note was prepared using voice recognition software and direct typing Please excuse inadvertent granite installer or typing errors, or uncorrected word substitutions Although every attempt has been made by the provider to proofread this document, occasional misspellings and typographical errors may still be present Due to the previous pandemic, and the use of personal protective equipment (PPE) This may decrease voice recognition accuracy Inadvertent granite installer errors may occur 08/29/2024 Encounter for examination of blood pressure without abnormal findings (ICD-10 - Z01.30) #Weight Management 08/29/2024 Patient is thriving and continual improvements in body composition including fat mass Continue 15 mg dosing Status post venous procedure last month at [facility] Total time spent today was 30 minutes of which greater than 50% was spent on coordinating and counseling Patient has been found to be obese with a BMI of (35). Patient has class (2) obesity. We are a board certified obesity and weight management practice Of note, some information is being carried forward from prior records for informational purposes only and is being cited so that efficiency, safety and quality of the patient's care is not compromised This note was prepared using voice recognition software and direct typing Please excuse inadvertent granite installer or typing errors, or uncorrected word substitutions Although every attempt has been made by the provider to proofread this document, occasional misspellings and typographical errors may still be present Due to the previous pandemic, and the use of personal protective equipment (PPE) This may decrease voice recognition accuracy Inadvertent granite installer errors may occur Plan Of Treatment Next Appt Details Provider Name:LATOYA JOHNSON, 02/18/2025 10:15:00 AM, [address] [facility], [facility] [address], [place], [address], History and Physical Notes * HPI (History of Present Illness) Category Sub-Category Detail Notes Category Not es Constitutional Patient is here today for a weight management f/u visit Patient seen and examined. Full past medical history, social history, family history, allergies and current medications were reviewed and updated. Body composition analysis reviewed today #Weight Management 08/29/2024 24-hour dietary recall Breakfast: Lunch: Dinner: Snacking: Micronutrients: no abd pain, only c/o slight constipation, using fiber Recently saw vascular surgery on July 11 at [facility] He is status post endovenous radiofrequency ablation of the right greater saphenous vein and microphlebectomy done back on June 27, 2024 He wears his compression stockings intermittently and for the most part incision is well-healed He will work on trying to increase more activity Feels his clothes are fitting much better Patient thriving on Mounjaro 15mg, dual incretin therapy Continues to lose weight and body composition is improving Endorses adequate appetite suppression. Past med hx- HTN, HLD, Chronic lower back/hip told he needs bilateral hip replacements eventually, pain recieves cortisone injections, hx afib with conversion not currently on any anticoagulation, Depression, Bipolar d/o on abilify, DONNA, hx of gastric bypass 2014. DONNA on CPAP via pulmonology, off and on usage Had gastric bypass in the past and lost over 100lbs. Monday Transthoracic echocardiogram June 2022 Dilated left ventricle Concentric LVH Mild systolic dysfunction with EF of 45 to 50% No hemodynamic significant valvular disease Normal RV function Exercise: Chronic pain makes it difficult doesn't get much exercise in, keeps busy around the house. Works on cars. Tobacco- denies ETOH- denies disabled on SSI. pcp CLAUDIO Carbajal 08/29/2024, Weight , BMI 07/17/2024, Weight 256.9, BMI 35.8 06/04/2024, Weight 252lbs , BMI 35 (-6lbs) 04/17/2024, Weight 258lbs, BMI 36 (-3lbs) 03/06/2024, Weight 261lbs, BMI 37 (-9lbs) 11/29/2023, Weight 270lbs , BMI 39 (-8lbs) 09/26/2023, Weight 278.77 lbs, BMI 38.9 (-6lbs) 07/21/2023, Weight 284lbs , BMI 39 (-11lbs) 05/26/2023, Weight 295lbs , BMI 41 04/07/2023, Weight 295lbs ,BMI 41, (-19lbs) 12/27/2022: Weight 314lbs, BMI 43, (-6lbs) 11/08/2022: Weight 320 lbs BMI 44.6 (-7 lbs) 09/27/2022: Weight 327 lbs BMI 45 (-12 lbs) 08/12/2022: Weight 339 pounds, BMI 47 06/23/2022: Weight 337lbs, BMI: 47 Highest weight: 365 lbs Lowest weight: 290 lbs Goal weight: 250-260 lbs Comprehensive labs November 2023 [facility] epic Hemoglobin A1c of 5.0 Renal function electrolytes and LFTs are stable Total cholesterol 178, triglycerides 125, HDL 41, LDL 112 TSH 2.09 Amylase is normal 87 Lipase 76 Examination Category Sub-Category Detail Notes Category Not es General Examination GENERAL APPEARANCE: in no ac skull valley distress, well developed, well nourished HEAD: normocephalic, atrau matic EYES: pupils equal, round, reactive to light and accommodation EARS: normal THROAT: clear NECK/THYROID: neck supple, full ra nge of motion, no cervical lymphadenopathy HEART: no murmurs, regular rate and rhythm, S1, S2 normal LUNGS: clear to auscultatio n bilaterally ABDOMEN: normal, bowel sounds present, soft, nontender, nondistended NEUROLOGIC: nonfocal, motor stre ngth normal upper and lower extremities, sensory exam intact SKIN: no suspicious lesion s, warm and dry EXTREMITIES: no clubbing, cyanosi s, or edema ORAL CAVITY: mucosa moist Progress Notes * Steve CHRISTIANSONOB: (54 yo M)Acc No.[id number]:08/29/2024 Patient: Shaq Diamond Provider: Camila JOHNSON NP :[id number] A ge:54 Y S ex:Male Date:08/29/2024 Address:[address] [place], [place] [id number] Subjective: * Chief Complaints: * HPI: C onstitutional: Patient is here today for a weight management f/u visit Patient seen and examined. Full past medical history, social history, family history, allergies and current medications were reviewed and updated. Body composition analysis reviewed today #Weight Management 08/29/2024 24-hour dietary recall Breakfast: Lunch: Dinner: Snacking: Micronutrients: no abd pain, only c/o slight constipation, using fiber Recently saw vascular surgery on July 11 at [facility] He is status post endovenous radiofrequency ablation of the right greater saphenous vein and microphlebectomy done back on June 27, 2024 He wears his compression stockings intermittently and for the most part incision is well-healed He will work on trying to increase more activity Feels his clothes are fitting much better Patient thriving on Mounjaro 15mg, dual incretin therapy Continues to lose weight and body composition is improving Endorses adequate appetite suppression. Past med hx- HTN, HLD, Chronic lower back/hip told he needs bilateral hip replacements eventually, pain recieves cortisone injections, hx afib with conversion not currently on any anticoagulation, Depression, Bipolar d/o on abilify, DONNA, hx of gastric bypass 2014. DONNA on CPAP via pulmonology, off and on usage Had gastric bypass in the past and lost over 100lbs. Injection day, Monday Transthoracic echocardiogram June 2022 Dilated left ventricle Concentric LVH Mild systolic dysfunction with EF of 45 to 50% No hemodynamic significant valvular disease Normal RV function Exercise: Chronic pain makes it difficult doesn't get much exercise in, keeps busy around the house. Works on cars. Tobacco- denies ETOH- denies disabled on SSI. pcp CLAUDIO Carbajal 08/29/2024, Weight , BMI 07/17/2024, Weight 256.9, BMI 35.8 06/04/2024, Weight 252lbs , BMI 35 (-6lbs) 04/17/2024, Weight 258lbs, BMI 36 (-3lbs) 03/06/2024, Weight 261lbs, BMI 37 (-9lbs) 11/29/2023, Weight 270lbs , BMI 39 (-8lbs) 09/26/2023, Weight 278.77 lbs, BMI 38.9 (-6lbs) 07/21/2023, Weight 284lbs , BMI 39 (-11lbs) 05/26/2023, Weight 295lbs , BMI 41 04/07/2023, Weight 295lbs ,BMI 41, (-19lbs) 12/27/2022: Weight 314lbs, BMI 43, (-6lbs) 11/08/2022: Weight 320 lbs BMI 44.6 (-7 lbs) 09/27/2022: Weight 327 lbs BMI 45 (-12 lbs) 08/12/2022: Weight 339 pounds, BMI 47 06/23/2022: Weight 337lbs, BMI: 47 Highest weight: 365 lbs Lowest weight: 290 lbs Goal weight: 250-260 lbs Comprehensive labs November 2023 [facility] epic Hemoglobin A1c of 5.0 Renal function electrolytes and LFTs are stable Total cholesterol 178, triglycerides 125, HDL 41, LDL 112 TSH 2.09 Amylase is normal 87 Lipase 76. * ROS: A ll Other Systems: Review of Systems (ROS) A ll others negative except those mentioned in HPI. Objective: * Examination: G eneral Examination: GENERAL APPEARANCE: i n no acute distress, well developed, well nourished. HEAD: n ormocephalic, atraumatic. EYES: p upils equal, round, reactive to light and accommodation. EARS: n ormal. ORAL CAVITY: m ucosa moist. THROAT: c lear. NECK/THYROID: n conrad supple, full range of motion, no cervical lymphadenopathy. SKIN: n o suspicious lesions, warm and dry. HEART: n o murmurs, regular rate and rhythm, S1, S2 normal.? LUNGS: c lear to auscultation bilaterally. ABDOMEN: n ormal, bowel sounds present, soft, nontender, nondistended. EXTREMITIES: n o clubbing, cyanosis, or edema. NEUROLOGIC: n onfocal, motor strength normal upper and lower extremities, sensory exam intact. Assessment: * Assessment: 1. O ther obesity due to excess calories - E66.09 2 . B NV 35.0-35.9,adult - Z68.35 3 . D ietary counseling and surveillance - Z71.3 4 .?PAF (paroxysmal atrial fibrillation) - I48.0 5 . P ure hypercholesterolemia, unspecified - E78.00 6 . O SA (obstructive sleep apnea) - G47.33 ?7. P rediabetes - R73.03 8 . A nemia due to vitamin B12 deficiency, unspecified B12 deficiency type - D51.9 9 . T ype 2 diabetes mellitus without complication, without long-term current use of insulin - E11.9 1 0. E ncounter for examination of blood pressure without abnormal findings - Z01.30 #Weight Management 08/29/2024 Patient is thriving and continual improvements in body composition including fat mass Continue 15 mg dosing Status post venous procedure last month at [facility] Total time spent today was 30 minutes of which greater than 50% was spent on coordinating and counseling Patient has been found to be obese with a BMI of (35). Patient has class (2) obesity. We are a board certified obesity and weight management practice Of note, some information is being carried forward from prior records for informational purposes only and is being cited so that efficiency, safety and quality of the patient's care is not compromised This note was prepared using voice recognition software and direct typing Please excuse inadvertent granite installer or typing errors, or uncorrected word substitutions Although every attempt has been made by the provider to proofread this document, occasional misspellings and typographical errors may still be present Due to the previous pandemic, and the use of personal protective equipment (PPE) This may decrease voice recognition accuracy Inadvertent granite installer errors may occur * Electronic signature of LINDEN JOHNSON on 02/03/2025 at 04:47 PM EST Sign off status: Pending * Provider: Camila JOHNSON NP Date: 0 08/29/2024 Generated for Dominique Duran/Viji on: 1 04:47 PM EST
--- OUTSIDE RECORDS SUMMARY | 2024-12-03 04:00 | XMS_ITS ---
Author Organization [facility] [address] Address [address] [place] [address] Care Team Providers Care Project Manager Process Development Name Role Phone LATOYA JOHNSON Unavailable [phone] Encounters Encounter Location Date Provider Diagnosis [facility] [address] [place] [address] 12/03/2024 LATOYA JOHNSON Plan Of Treatment Next Appt Details Provider Name:LATOYA JOHNSON, 02/18/2025 10:15:00 AM, [address], [address], [place], [address], Progress Notes * Steve DALEYOB: (54 yo M)Acc No.[id number]:12/03/2024 Patient: Herve VarelaivanJungon Provider: Camila JOHNSON NP :1970 A ge:54 Y S ex:Male Date:12/03/2024 Address:[address] [place] [phone] * Electronic signature of LINDEN JOHNSON on 02/03/2025 at 04:48 PM EST Sign off status: Pending * Provider: Camila JOHNSON NP Date: Generated for Hnerii ng/Fagabrielag/eTransmitting on: 04:48 PM EST
--- NOTE | 2025-02-03 14:33 | A.PHYSOV ---
Vital Signs 02/03/25 14:34 Height 5 ft 11 in Weight 245 lb BMI 34.2 Intake Visit Reasons: Follow up after injection 12/27/24 Intake Note: Patient is a 54 year old male here for follow up after bilateral hip injections with Dr. Felix on 12/27/24. Welfare Director Name: [id number] Alexander Allergies gabapentin Allergy (Unknown, Verified 02/03/25 14:36) Unknown HPI Comments Details: History of Present Illness The patient is a 54 year old male presenting for follow-up on recent hip injections. He recently received injections in his hips and reports approximately 70% relief from that procedure from bilateral intra-articular injection in December. He currently denies any pain in his hips. The patient reports new pain in his shoulder and neck, for which he has not had any prior workup such as x-rays. He has been seeing a chiropractor for these symptoms, with the last visit occurring two weeks ago. He notes that chiropractic adjustments provide temporary pain relief for a few days before the pain returns. The patient reports he has run out of his pain medication, which includes prednisone and a muscle relaxer. Pain Description - Hip Pain: The patient reports 70% pain relief following recent injections and denies any current hip pain. - Neck and Shoulder Pain: The patient reports new pain in his neck and shoulder. - Relieving Factors: Chiropractic adjustments provide temporary relief for a few days before the pain returns. Procedure: Bilateral hip intra-articular injection 06/17/2022 90% reduction of his pain Right rhomboid paraspinal muscle trigger point injection 09/01/2022 Bilateral hip intra-articular injection 01/26/2024 60% reduction of his pain Bilateral hip intra-articular injection December 2024 80% reduction of his pain Results FOR[facility]LY [facility], [facility]–1983 Medical History (Updated 02/03/25 @ 14:49 by ANDREI Gray) Degenerative joint disease of both hips Surgical History History of appendectomy History of gastric bypass (Unknown) Social History Alcohol intake: current Alcohol intake frequency: does not drink Patient Tobacco Use Status: Never used Tobacco Current occupational status: retired and disabled Review of Systems Narrative Review of Systems - Musculoskeletal: Reports new pain in the shoulder and neck. - Musculoskeletal: Denies current hip pain. - Constitutional: Reports fatigue after riding a bike. Physical Exam Exam Exam: Physical Exam Lumbar Spine: He is nontender to palpation of his lumbar spine. Full range of motion. Special Tests: Lhermittes sign was negative Heel Toe walk is normal Left straight leg raise: Negative Right straight leg raise: Negative Special tests Lesley test is negative Ganslen's test is negative SI Joint compression test negative Mera test negative Piriformis stretch is negative Lower Extremities: Improved range of motion of his hip and external rotation and abduction. Neuro: Sensation: Intact to lower extremities bilaterally Strength L2 (Psoas): 5/5 on the left and 5/5 on the right. L3 (Quads): 5/5 on the left and 5/5 on the right. L4 (Ant tibialis): 5/5 on the left and 5/5 on the right. L5 (EHL) 5/5 on the left and 5/5 on the right. S1 (Gastroc): 5/5 on the left and 5/5 on the right. DTR L4: (Patellar) Left 2 Right 2 S1: (Achilles) Left 2 Right 2 Babinski Downgoing No pathologic clonus. No involuntary movement. Vital Signs: BMI result Body Mass Index 34.2 Assessment & Plan Assessment & Plan (1) Bilateral primary osteoarthritis of hip: Code(s): M16.0 - Bilateral primary osteoarthritis of hip Category: Medical (2) Cervicalgia: Code(s): M54.2 - Cervicalgia Category: Medical (3) Impingement of right shoulder: Code(s): M25.811 - Other specified joint disorders, right shoulder Category: Medical Plan Pain Management - Analgesia: The patient reports 70% relief in his hips from recent injections. - Current Medications: He has been taking prednisone and a muscle relaxer but has run out of his pain pills. - Activities of Daily Living: The patient rode a bike but got tired, noting it has been a long time since he last did so. Plan Patient was informed and verbally consented to the use of an ambient scribe for clinic note documentation during this visit. 1. Hip Pain The patient is having a follow-up visit for recent hip injections and reports a 70% improvement in his symptoms with no current hip pain. No further intervention for the hips is planned at this time. 2. Neck Pain The patient reports new neck pain, which receives temporary relief from chiropractic adjustments. An x-ray of the neck will be ordered to further evaluate the cause of his pain. A muscle relaxer and an anti-inflammatory will be prescribed for symptomatic relief. Follow-up is scheduled in one month to review imaging and discuss further treatment. 3. Shoulder Pain The patient complains of new right shoulder pain. An x-ray of the right shoulder will be ordered to investigate the etiology. He will be prescribed a muscle relaxer and an anti-inflammatory medication. He will follow up in one month to review the imaging results and reassess his symptoms. Discussion Notes I reviewed the patient's status following his recent hip injections, and he reports 70% relief. He presented with new complaints of neck and shoulder pain. I discussed ordering x-rays for his neck and right shoulder to investigate these new symptoms, and he was agreeable. I informed him that prednisone is not ideal for long-term use, and I will instead prescribe an anti-inflammatory and a muscle relaxer. We will plan to follow up in one month to review the x-ray results together and determine the next steps for his pain management. Patient Instructions - Get x-rays done of your neck and right shoulder. - I will send prescriptions for a muscle relaxer and an anti-inflammatory medication to your pharmacy. - Prednisone should not be taken all the time; use the new anti-inflammatory instead. - Please return for a follow-up visit in about one month to look at your x-rays and discuss what to do next for your pain. Orders: Orders XR cervical spine 5V Today M54.2 - Cervicalgia XR shoulder RT 1V Today M25.811 - Other specified joint disorders, right shoulder Medications: New naproxen 500 mg PO BID PRN 60 tabs 6RF pain M16.0 - Bilateral primary osteoarthritis of hip tizanidine 4 mg PO TID PRN 90 caps 6RF muscle spasticity 30 days M16.0 - Bilateral primary osteoarthritis of hip, M25.811 - Other specified joint disorders, right shoulder Coding Level of Care Code Est Pt Level 4 (56536) Diagnoses Bilateral primary osteoarthritis of hip M16.0 Cervicalgia M54.2 Impingement of right shoulder M25.811
[2025-02-03 14:34] VITALS: BMI 34.2
--- OUTSIDE RECORDS SUMMARY | 2025-02-03 16:48 | XMS_ITS | Patient Health Record ---
[facility] Address [address] [place] [address] Care Team Providers Care Human Resources Manager Name Role Phone LATOYA JOHNSON Unavailable [phone] Allergies Allergen (clinical drug ingredient) Drug/Non Drug Allergy documented on EMR Reaction Allergy Type Onset Date Status gabapentin Gabapentin rash Drug Allergy Activ e Reason For Referral No Information Medications Medication SIG (Take, Route, Frequency, Duration) Notes Start Date End Date Status Atorvastatin Calcium 20 MG Tablet 1 tablet Orally Once a day Active hydroCHLOROthiazide 25 MG Tablet 1 tablet in the morning Orally Once a day Active Ondansetron 4 MG Tablet Disintegrating 1 tablet on the tongue and allow to dissolve prn nausea/vomiting Orally twice day; Duration: 30 days Active Lisinopril 40 MG Tablet 1 tablet Orally Once a day Active Linzess 145 MCG Capsule [address] 30 minutes before the first meal of the day on an empty stomach Orally Once a day; Duration: 30 days 06/04/2024 Active Metoprolol Succinate ER 200 MG Tablet Extended Release 24 Hour 1 tablet Orally Once a day Active Cetirizine HCl 10 MG Tablet 1 tablet Ora lly Once a day Active tiZANidine HCl 4 MG Tablet 1 tablet as n eeded Orally Three times a day Active Aspirin 81 81 MG Tablet Chewable 1 tablet Orally Once a day Active Fluticasone Furoate 100 MCG/ACT Aerosol Powder Breath Activated 1 puff Inhalation Once a day Active Multivitamin - Tablet 1 tablet Orally On ce a day Active Mounjaro 15 MG/0.5ML Solutio n Auto-injector 15mg Subcutaneous weekly; Duration: 30 days Active cloNIDine 0.1 MG/24HR Patch Weekly 1 patch to skin Transdermal Active Clotrimazole 1 % Cream 1 application Externally Twice a day Active Social History Tobacco Use: Social History [...] Status Risk Notes Problem Morbid obesity (disorder) (304957039) Morbid (severe) obesity due to excess calories (E66.01) Active confirmed Problem Obesity due to exces s calories (266640915) Other obesity due to excess calories (E66.09) Active confirmed Problem Pure hypercholesterolemia (775376196) Pure hypercholesterol emia, unspecified (E78.00) Active confirmed Problem Hyperlipidaemia (70891275) Hyperlipidemia, unspecified hyperlipidemia type (E78.5) Active confirmed Problem Hypothyroidism (18007359) Hypothyroidism, unspecified type (E03.9) Active confirmed Problem Obstructive sleep apnea syndrome (55835591) DONNA (obstructive sleep apnea) (G47.33) Active confirmed Problem Body mass index 40+ - morbidly obese (211628048) BMI 40.0-44.9, adult (Z68.41) Active confirmed Problem Type II diabetes mellitus without complication (098442125) Type 2 diabetes mellitus without complication, without long-term current use of insulin (E11.9) Active confirmed Problem Body mass index 35.0 0 to 39.99 (417921521417133) Body mass index [BMI] 39.0-39.9, adult (Z68.39) Active confirmed Problem Obese class II (937397281570100) BMI 35.0-35.9,adult (Z68.35) Active confirmed Problem Vitamin B>12< deficiency anaemia (11198563) Anemia due to vitamin B12 deficiency, 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) Active confirmed Problem Obese class II (049688286990522) BMI 38.0-38.9,adult (Z68.38) Active confirmed Problem Atrial fibrillation (05537508) PAF (paroxysmal atrial fibrillation) (I48.0) Active confirmed Problem Body mass index 40+ - severely obese (269978420) BMI 45.0-49.9, adult (Z68.42) Active confirmed Vital Signs Heart Rate 82 /min 12/31/2024 Oximetry 96 % 12/31/2024 Blood pressure diastolic 80 mm Hg 12/31/2024 Height 71 in 12/31/2024 Blood pressure systolic 106 mm Hg 12/31/2024 Weight 255.9 lbs 12/31/2024 BMI 35.69 kg/m2 12/31/2024 Encounters Encounter Location Date Provider Diagnosis [facility] [address] [address] 03/06/2024 LATOYA CARRShirley Other obesity due to excess [...] without long-term current use of insulin E11.9 [facility] [address] [address] 04/17/2024 LATOYA ALEX Other obesity due to [...] without long-term current use of insulin E11.9 [facility] [address] [address] 06/04/2024 LATOYA ALEX Other obesity due to excess [...] without long-term current use of insulin E11.9 [facility] [address] [address] 07/17/2024 LATOYARICKIE CARRT Other obesity due to excess calories E66.09 [...] of blood pressure without abnormal findings Z01.30 [facility] [address] 09/09/2024 LATOYA CARRT Other obesity due to excess calories E66.09 [...] of blood pressure without abnormal findings Z01.30 [facility] [address] [address] 10/22/2024 LATOYA CARRT Other obesity due to excess calories E66.09 ; BMI 35.0-35.9,adult Z68.35 ; Dietary counseling and surveillance Z71.3 ; PAF (paroxysmal atrial fibrillation) I48.0 ; Pure hypercholesterolemia, unspecified E78.00 ; DONNA (obstructive sleep apnea) G47.33 ; Prediabetes R73.03 ; Type 2 diabetes mellitus without complication, without long-term current use of insulin E11.9 and Encounter for examination of blood pressure without abnormal findings Z01.30 [facility] [address] [address] 12/31/2024 LATOYA BORHOT Other obesity due to excess [...] abnormal findings Z01.30 [facility] [address] [facility] [address] [place] [address] 05/14/2024 LATOYA JOHNHOT Other obesity due to excess calories E66.09 [facility] [address] [address] 08/28/2024 LATOYA BORHOT Other obesity due to excess calories E66.09 [facility] [address] [address] 10/11/2024 LATOYA BRUNOT Morbid (severe) obes ity due to excess calories E66.01 and Other obesity due to excess calories E66.09 [facility] [address] [address] 11/12/2024 LATOYA LOPEZHOT Other obesity due to excess calories E66.09 Assessments Encounter Date Diagnosis (ICD Code) Assessment Notes Treatment Notes Treatment Clinical Notes Section Notes 03/06/2024 Other obesity due to excess calories [...] minimum of 6 months The most recent [place] [employer]ocrinologists and [place] [employer] guidelines recommend patients who [...] software and direct typing Please excuse inadvertent licensed weigher or typing errors, or uncorrected word substitutions Although every attempt has been made by the provider to proofread this document, occasional misspellings and typographical errors may still be present Due to the previous pandemic, and the use of personal protective equipment (PPE) This may decrease voice recognition accuracy Inadvertent licensed weigher errors may occur 04/17/2024 Other obesity due [...] software and direct typing Please excuse inadvertent licensed weigher or typing errors, or uncorrected word substitutions Although every attempt has been made by the provider to proofread this document, occasional misspellings and typographical errors may still be present Due to the previous pandemic, and the use of personal protective equipment (PPE) This may decrease voice recognition accuracy Inadvertent licensed weigher errors may occur 05/14/2024 Other obesity due [...] software and direct typing Please excuse inadvertent licensed weigher or typing errors, or uncorrected word substitutions Although every attempt has been made by the provider to proofread this document, occasional misspellings and typographical errors may still be present Due to the previous pandemic, and the use of personal protective equipment (PPE) This may decrease voice recognition accuracy Inadvertent licensed weigher errors may occur 07/17/2024 Other obesity due to excess calories (ICD-10 - E66.09) #Weight Management 07/17/2024 Patient is thriving and continual improvements in body composition including fat mass Continue 15 mg dosing Status post venous procedure last month at [facility] Total time spent today was 30 minutes [...] software and direct typing Please excuse inadvertent licensed weigher or typing errors, or uncorrected word substitutions Although every attempt has been made by the provider to proofread this document, occasional misspellings and typographical errors may still be present Due to the previous pandemic, and the use of personal protective equipment (PPE) This may decrease voice recognition accuracy Inadvertent licensed weigher errors may occur 08/28/2024 Other obesity due [...] software and direct typing Please excuse inadvertent licensed weigher or typing errors, or uncorrected word substitutions Although every attempt has been made by the provider to proofread this document, occasional misspellings and typographical errors may still be present Due to the previous pandemic, and the use of personal protective equipment (PPE) This may decrease voice recognition accuracy Inadvertent licensed weigher errors may occur 10/22/2024 Other obesity due [...] software and direct typing Please excuse inadvertent licensed weigher or typing errors, or uncorrected word substitutions Although every attempt has been made by the provider to proofread this document, occasional misspellings and typographical errors may still be present Due to the previous pandemic, and the use of personal protective equipment (PPE) This may decrease voice recognition accuracy Inadvertent licensed weigher errors may occur 11/12/2024 Other obesity due to excess calories (ICD-10 - E66.09) 12/31/2024 Other obesity due to excess calories (ICD-10 - E66.09) #Weight Management 12/31/2024 Patient is thriving and continual improvements in [...] software and direct typing Please excuse inadvertent licensed weigher or typing errors, or uncorrected word substitutions Although every attempt has been made by the provider to proofread this document, occasional misspellings and typographical errors may still be present Due to the previous pandemic, and the use of personal protective equipment (PPE) This may decrease voice recognition accuracy Inadvertent licensed weigher errors may occur 12/31/2024 BMI 35.0-35.9,adult (ICD-10 - Z68.35) #Weight Management 12/31/2024 Patient is thriving and continual improvements in [...] software and direct typing Please excuse inadvertent licensed weigher or typing errors, or uncorrected word substitutions Although every attempt has been made by the provider to proofread this document, occasional misspellings and typographical errors may still be present Due to the previous pandemic, and the use of personal protective equipment (PPE) This may decrease voice recognition accuracy Inadvertent licensed weigher errors may occur 10/22/2024 BMI 35.0-35.9,adult (ICD-10 - Z68.35) #Weight [...] software and direct typing Please excuse inadvertent licensed weigher or typing errors, or uncorrected word substitutions Although every attempt has been made by the provider to proofread this document, occasional misspellings and typographical errors may still be present Due to the previous pandemic, and the use of personal protective equipment (PPE) This may decrease voice recognition accuracy Inadvertent licensed weigher errors may occur 12/31/2024 Dietary counseling and surveillance (ICD-10 - Z71.3) #Weight Management 12/31/2024 Patient is thriving and continual improvements in [...] software and direct typing Please excuse inadvertent licensed weigher or typing errors, or uncorrected word substitutions Although every attempt has been made by the provider to proofread this document, occasional misspellings and typographical errors may still be present Due to the previous pandemic, and the use of personal protective equipment (PPE) This may decrease voice recognition accuracy Inadvertent licensed weigher errors may occur 10/11/2024 Morbid (severe) obesity [...] software and direct typing Please excuse inadvertent licensed weigher or typing errors, or uncorrected word substitutions Although every attempt has been made by the provider to proofread this document, occasional misspellings and typographical errors may still be present Due to the previous pandemic, and the use of personal protective equipment (PPE) This may decrease voice recognition accuracy Inadvertent licensed weigher errors may occur 07/17/2024 BMI 35.0-35.9,adult (ICD-10 - Z68.35) #Weight Management 07/17/2024 Patient is thriving and continual improvements in body composition including fat mass Continue 15 mg dosing Status post venous procedure last month at [facility] Total time spent today was 30 minutes [...] software and direct typing Please excuse inadvertent licensed weigher or typing errors, or uncorrected word substitutions Although every attempt has been made by the provider to proofread this document, occasional misspellings and typographical errors may still be present Due to the previous pandemic, and the use of personal protective equipment (PPE) This may decrease voice recognition accuracy Inadvertent licensed weigher errors may occur 06/04/2024 BMI 35.0-35.9,adult (ICD-10 [...] software and direct typing Please excuse inadvertent licensed weigher or typing errors, or uncorrected word substitutions Although every attempt has been made by the provider to proofread this document, occasional misspellings and typographical errors may still be present Due to the previous pandemic, and the use of personal protective equipment (PPE) This may decrease voice recognition accuracy Inadvertent licensed weigher errors may occur 04/17/2024 BMI 35.0-35.9,adult (ICD-10 [...] software and direct typing Please excuse inadvertent licensed weigher or typing errors, or uncorrected word substitutions Although every attempt has been made by the provider to proofread this document, occasional misspellings and typographical errors may still be present Due to the previous pandemic, and the use of personal protective equipment (PPE) This may decrease voice recognition accuracy Inadvertent licensed weigher errors may occur 03/06/2024 BMI 38.0-38.9,adult (ICD-10 [...] minimum of 6 months The most recent [place] [employer]ocrinologists and [place] [employer] guidelines recommend patients who [...] software and direct typing Please excuse inadvertent licensed weigher or typing errors, or uncorrected word substitutions Although every attempt has been made by the provider to proofread this document, occasional misspellings and typographical errors may still be present Due to the previous pandemic, and the use of personal protective equipment (PPE) This may decrease voice recognition accuracy Inadvertent licensed weigher errors may occur 03/06/2024 Dietary counseling and [...] minimum of 6 months The most recent [place] [employer]ocrinologists and [place] [employer] guidelines recommend patients who [...] software and direct typing Please excuse inadvertent licensed weigher or typing errors, or uncorrected word substitutions Although every attempt has been made by the provider to proofread this document, occasional misspellings and typographical errors may still be present Due to the previous pandemic, and the use of personal protective equipment (PPE) This may decrease voice recognition accuracy Inadvertent licensed weigher errors may occur 04/17/2024 Dietary counseling and [...] software and direct typing Please excuse inadvertent licensed weigher or typing errors, or uncorrected word substitutions Although every attempt has been made by the provider to proofread this document, occasional misspellings and typographical errors may still be present Due to the previous pandemic, and the use of personal protective equipment (PPE) This may decrease voice recognition accuracy Inadvertent licensed weigher errors may occur 06/04/2024 Dietary counseling and [...] software and direct typing Please excuse inadvertent licensed weigher or typing errors, or uncorrected word substitutions Although every attempt has been made by the provider to proofread this document, occasional misspellings and typographical errors may still be present Due to the previous pandemic, and the use of personal protective equipment (PPE) This may decrease voice recognition accuracy Inadvertent licensed weigher errors may occur 07/17/2024 Dietary counseling and surveillance (ICD-10 - Z71.3) #Weight Management 07/17/2024 Patient is thriving and continual improvements in body composition including fat mass Continue 15 mg dosing Status post venous procedure last month at [facility] Total time spent today was 30 minutes [...] software and direct typing Please excuse inadvertent licensed weigher or typing errors, or uncorrected word substitutions Although every attempt has been made by the provider to proofread this document, occasional misspellings and typographical errors may still be present Due to the previous pandemic, and the use of personal protective equipment (PPE) This may decrease voice recognition accuracy Inadvertent licensed weigher errors may occur 09/09/2024 Dietary counseling and [...] software and direct typing Please excuse inadvertent licensed weigher or typing errors, or uncorrected word substitutions Although every attempt has been made by the provider to proofread this document, occasional misspellings and typographical errors may still be present Due to the previous pandemic, and the use of personal protective equipment (PPE) This may decrease voice recognition accuracy Inadvertent licensed weigher errors may occur 10/11/2024 Other obesity due [...] software and direct typing Please excuse inadvertent licensed weigher or typing errors, or uncorrected word substitutions Although every attempt has been made by the provider to proofread this document, occasional misspellings and typographical errors may still be present Due to the previous pandemic, and the use of personal protective equipment (PPE) This may decrease voice recognition accuracy Inadvertent licensed weigher errors may occur 12/31/2024 PAF (paroxysmal atrial fibrillation) (ICD-10 - I48.0) #Weight Management 12/31/2024 Patient is thriving and continual improvements in [...] software and direct typing Please excuse inadvertent licensed weigher or typing errors, or uncorrected word substitutions Although every attempt has been made by the provider to proofread this document, occasional misspellings and typographical errors may still be present Due to the previous pandemic, and the use of personal protective equipment (PPE) This may decrease voice recognition accuracy Inadvertent licensed weigher errors may occur 12/31/2024 Pure hypercholestero lemia, unspecified (ICD-10 - E78.00) #Weight Management 12/31/2024 Patient is thriving and continual improvements in [...] software and direct typing Please excuse inadvertent licensed weigher or typing errors, or uncorrected word substitutions Although every attempt has been made by the provider to proofread this document, occasional misspellings and typographical errors may still be present Due to the previous pandemic, and the use of personal protective equipment (PPE) This may decrease voice recognition accuracy Inadvertent licensed weigher errors may occur 10/22/2024 PAF (paroxysmal atrial [...] software and direct typing Please excuse inadvertent licensed weigher or typing errors, or uncorrected word substitutions Although every attempt has been made by the provider to proofread this document, occasional misspellings and typographical errors may still be present Due to the previous pandemic, and the use of personal protective equipment (PPE) This may decrease voice recognition accuracy Inadvertent licensed weigher errors may occur 09/09/2024 PAF (paroxysmal atrial [...] software and direct typing Please excuse inadvertent licensed weigher or typing errors, or uncorrected word substitutions Although every attempt has been made by the provider to proofread this document, occasional misspellings and typographical errors may still be present Due to the previous pandemic, and the use of personal protective equipment (PPE) This may decrease voice recognition accuracy Inadvertent licensed weigher errors may occur 06/04/2024 PAF (paroxysmal atrial [...] software and direct typing Please excuse inadvertent licensed weigher or typing errors, or uncorrected word substitutions Although every attempt has been made by the provider to proofread this document, occasional misspellings and typographical errors may still be present Due to the previous pandemic, and the use of personal protective equipment (PPE) This may decrease voice recognition accuracy Inadvertent licensed weigher errors may occur 07/17/2024 PAF (paroxysmal atrial fibrillation) (ICD-10 - I48.0) #Weight Management 07/17/2024 Patient is thriving and continual improvements in body composition including fat mass Continue 15 mg dosing Status post venous procedure last month at [facility] Total time spent today was 30 minutes [...] software and direct typing Please excuse inadvertent licensed weigher or typing errors, or uncorrected word substitutions Although every attempt has been made by the provider to proofread this document, occasional misspellings and typographical errors may still be present Due to the previous pandemic, and the use of personal protective equipment (PPE) This may decrease voice recognition accuracy Inadvertent licensed weigher errors may occur 04/17/2024 PAF (paroxysmal atrial [...] software and direct typing Please excuse inadvertent licensed weigher or typing errors, or uncorrected word substitutions Although every attempt has been made by the provider to proofread this document, occasional misspellings and typographical errors may still be present Due to the previous pandemic, and the use of personal protective equipment (PPE) This may decrease voice recognition accuracy Inadvertent licensed weigher errors may occur 03/06/2024 PAF (paroxysmal atrial [...] minimum of 6 months The most recent [place] [employer]ocrinologists and [place] [employer] guidelines recommend patients who [...] software and direct typing Please excuse inadvertent licensed weigher or typing errors, or uncorrected word substitutions Although every attempt has been made by the provider to proofread this document, occasional misspellings and typographical errors may still be present Due to the previous pandemic, and the use of personal protective equipment (PPE) This may decrease voice recognition accuracy Inadvertent licensed weigher errors may occur 03/06/2024 Pure hypercholestero lemia, [...] minimum of 6 months The most recent [place] [employer]ocrinologists and [place] [employer] guidelines recommend patients who [...] software and direct typing Please excuse inadvertent licensed weigher or typing errors, or uncorrected word substitutions Although every attempt has been made by the provider to proofread this document, occasional misspellings and typographical errors may still be present Due to the previous pandemic, and the use of personal protective equipment (PPE) This may decrease voice recognition accuracy Inadvertent licensed weigher errors may occur 04/17/2024 Pure hypercholestero lemia, [...] software and direct typing Please excuse inadvertent licensed weigher or typing errors, or uncorrected word substitutions Although every attempt has been made by the provider to proofread this document, occasional misspellings and typographical errors may still be present Due to the previous pandemic, and the use of personal protective equipment (PPE) This may decrease voice recognition accuracy Inadvertent licensed weigher errors may occur 06/04/2024 Pure hypercholestero lemia, [...] software and direct typing Please excuse inadvertent licensed weigher or typing errors, or uncorrected word substitutions Although every attempt has been made by the provider to proofread this document, occasional misspellings and typographical errors may still be present Due to the previous pandemic, and the use of personal protective equipment (PPE) This may decrease voice recognition accuracy Inadvertent licensed weigher errors may occur 07/17/2024 Pure hypercholestero lemia, unspecified (ICD-10 - E78.00) #Weight Management 07/17/2024 Patient is thriving and continual improvements in body composition including fat mass Continue 15 mg dosing Status post venous procedure last month at [facility] Total time spent today was 30 minutes [...] software and direct typing Please excuse inadvertent licensed weigher or typing errors, or uncorrected word substitutions Although every attempt has been made by the provider to proofread this document, occasional misspellings and typographical errors may still be present Due to the previous pandemic, and the use of personal protective equipment (PPE) This may decrease voice recognition accuracy Inadvertent licensed weigher errors may occur 09/09/2024 Pure hypercholestero lemia, [...] software and direct typing Please excuse inadvertent licensed weigher or typing errors, or uncorrected word substitutions Although every attempt has been made by the provider to proofread this document, occasional misspellings and typographical errors may still be present Due to the previous pandemic, and the use of personal protective equipment (PPE) This may decrease voice recognition accuracy Inadvertent licensed weigher errors may occur 10/22/2024 Pure hypercholestero lemia, [...] software and direct typing Please excuse inadvertent licensed weigher or typing errors, or uncorrected word substitutions Although every attempt has been made by the provider to proofread this document, occasional misspellings and typographical errors may still be present Due to the previous pandemic, and the use of personal protective equipment (PPE) This may decrease voice recognition accuracy Inadvertent licensed weigher errors may occur 12/31/2024 DONNA (obstructive sleep apnea) (ICD-10 - G47.33) #Weight Management 12/31/2024 Patient is thriving and continual improvements in [...] software and direct typing Please excuse inadvertent licensed weigher or typing errors, or uncorrected word substitutions Although every attempt has been made by the provider to proofread this document, occasional misspellings and typographical errors may still be present Due to the previous pandemic, and the use of personal protective equipment (PPE) This may decrease voice recognition accuracy Inadvertent licensed weigher errors may occur 12/31/2024 Prediabetes (ICD-10 - R73.03) #Weight Management 12/31/2024 Patient is thriving and continual improvements in [...] software and direct typing Please excuse inadvertent licensed weigher or typing errors, or uncorrected word substitutions Although every attempt has been made by the provider to proofread this document, occasional misspellings and typographical errors may still be present Due to the previous pandemic, and the use of personal protective equipment (PPE) This may decrease voice recognition accuracy Inadvertent licensed weigher errors may occur 10/22/2024 DONNA (obstructive sleep [...] software and direct typing Please excuse inadvertent licensed weigher or typing errors, or uncorrected word substitutions Although every attempt has been made by the provider to proofread this document, occasional misspellings and typographical errors may still be present Due to the previous pandemic, and the use of personal protective equipment (PPE) This may decrease voice recognition accuracy Inadvertent licensed weigher errors may occur 09/09/2024 DONNA (obstructive sleep [...] software and direct typing Please excuse inadvertent licensed weigher or typing errors, or uncorrected word substitutions Although every attempt has been made by the provider to proofread this document, occasional misspellings and typographical errors may still be present Due to the previous pandemic, and the use of personal protective equipment (PPE) This may decrease voice recognition accuracy Inadvertent licensed weigher errors may occur 07/17/2024 DONNA (obstructive sleep apnea) (ICD-10 - G47.33) #Weight Management 07/17/2024 Patient is thriving and continual improvements in body composition including fat mass Continue 15 mg dosing Status post venous procedure last month at [facility] Total time spent today was 30 minutes [...] software and direct typing Please excuse inadvertent licensed weigher or typing errors, or uncorrected word substitutions Although every attempt has been made by the provider to proofread this document, occasional misspellings and typographical errors may still be present Due to the previous pandemic, and the use of personal protective equipment (PPE) This may decrease voice recognition accuracy Inadvertent licensed weigher errors may occur 06/04/2024 DONNA (obstructive sleep [...] software and direct typing Please excuse inadvertent licensed weigher or typing errors, or uncorrected word substitutions Although every attempt has been made by the provider to proofread this document, occasional misspellings and typographical errors may still be present Due to the previous pandemic, and the use of personal protective equipment (PPE) This may decrease voice recognition accuracy Inadvertent licensed weigher errors may occur 04/17/2024 DONNA (obstructive sleep [...] software and direct typing Please excuse inadvertent licensed weigher or typing errors, or uncorrected word substitutions Although every attempt has been made by the provider to proofread this document, occasional misspellings and typographical errors may still be present Due to the previous pandemic, and the use of personal protective equipment (PPE) This may decrease voice recognition accuracy Inadvertent licensed weigher errors may occur 03/06/2024 DONNA (obstructive sleep [...] minimum of 6 months The most recent [place] [employer]ocrin[employer] and [place] [employer] guidelines recommend patients who [...] software and direct typing Please excuse inadvertent licensed weigher or typing errors, or uncorrected word substitutions Although every attempt has been made by the provider to proofread this document, occasional misspellings and typographical errors may still be present Due to the previous pandemic, and the use of personal protective equipment (PPE) This may decrease voice recognition accuracy Inadvertent licensed weigher errors may occur 03/06/2024 Prediabetes (ICD-10 - [...] minimum of 6 months The most recent [place] [employer] and [place] [employer] guidelines recommend patients who [...] software and direct typing Please excuse inadvertent licensed weigher or typing errors, or uncorrected word substitutions Although every attempt has been made by the provider to proofread this document, occasional misspellings and typographical errors may still be present Due to the previous pandemic, and the use of personal protective equipment (PPE) This may decrease voice recognition accuracy Inadvertent licensed weigher errors may occur 04/17/2024 Prediabetes (ICD-10 - [...] software and direct typing Please excuse inadvertent licensed weigher or typing errors, or uncorrected word substitutions Although every attempt has been made by the provider to proofread this document, occasional misspellings and typographical errors may still be present Due to the previous pandemic, and the use of personal protective equipment (PPE) This may decrease voice recognition accuracy Inadvertent licensed weigher errors may occur 07/17/2024 Prediabetes (ICD-10 - R73.03) #Weight Management 07/17/2024 Patient is thriving and continual improvements in body composition including fat mass Continue 15 mg dosing Status post venous procedure last month at [facility] Total time spent today was 30 minutes [...] software and direct typing Please excuse inadvertent licensed weigher or typing errors, or uncorrected word substitutions Although every attempt has been made by the provider to proofread this document, occasional misspellings and typographical errors may still be present Due to the previous pandemic, and the use of personal protective equipment (PPE) This may decrease voice recognition accuracy Inadvertent licensed weigher errors may occur 06/04/2024 Prediabetes (ICD-10 - [...] software and direct typing Please excuse inadvertent licensed weigher or typing errors, or uncorrected word substitutions Although every attempt has been made by the provider to proofread this document, occasional misspellings and typographical errors may still be present Due to the previous pandemic, and the use of personal protective equipment (PPE) This may decrease voice recognition accuracy Inadvertent licensed weigher errors may occur 09/09/2024 Prediabetes (ICD-10 - [...] software and direct typing Please excuse inadvertent licensed weigher or typing errors, or uncorrected word substitutions Although every attempt has been made by the provider to proofread this document, occasional misspellings and typographical errors may still be present Due to the previous pandemic, and the use of personal protective equipment (PPE) This may decrease voice recognition accuracy Inadvertent licensed weigher errors may occur 10/22/2024 Prediabetes (ICD-10 - [...] software and direct typing Please excuse inadvertent licensed weigher or typing errors, or uncorrected word substitutions Although every attempt has been made by the provider to proofread this document, occasional misspellings and typographical errors may still be present Due to the previous pandemic, and the use of personal protective equipment (PPE) This may decrease voice recognition accuracy Inadvertent licensed weigher errors may occur 12/31/2024 Type 2 diabetes mellitus without complication, without long-term current use of insulin (ICD-10 - E11.9) #Weight Management 12/31/2024 Patient is thriving and continual improvements in [...] software and direct typing Please excuse inadvertent licensed weigher or typing errors, or uncorrected word substitutions Although every attempt has been made by the provider to proofread this document, occasional misspellings and typographical errors may still be present Due to the previous pandemic, and the use of personal protective equipment (PPE) This may decrease voice recognition accuracy Inadvertent licensed weigher errors may occur 12/31/2024 Encounter for examination of blood pressure without abnormal findings (ICD-10 - Z01.30) #Weight Management 12/31/2024 Patient is thriving and continual improvements in [...] software and direct typing Please excuse inadvertent licensed weigher or typing errors, or uncorrected word substitutions Although every attempt has been made by the provider to proofread this document, occasional misspellings and typographical errors may still be present Due to the previous pandemic, and the use of personal protective equipment (PPE) This may decrease voice recognition accuracy Inadvertent licensed weigher errors may occur 10/22/2024 Type 2 diabetes [...] software and direct typing Please excuse inadvertent licensed weigher or typing errors, or uncorrected word substitutions Although every attempt has been made by the provider to proofread this document, occasional misspellings and typographical errors may still be present Due to the previous pandemic, and the use of personal protective equipment (PPE) This may decrease voice recognition accuracy Inadvertent licensed weigher errors may occur 09/09/2024 Anemia due to [...] software and direct typing Please excuse inadvertent licensed weigher or typing errors, or uncorrected word substitutions Although every attempt has been made by the provider to proofread this document, occasional misspellings and typographical errors may still be present Due to the previous pandemic, and the use of personal protective equipment (PPE) This may decrease voice recognition accuracy Inadvertent licensed weigher errors may occur 07/17/2024 Anemia due to vitamin B12 deficiency, unspecified B12 deficiency type (ICD-10 - D51.9) #Weight Management 07/17/2024 Patient is thriving and continual improvements in body composition including fat mass Continue 15 mg dosing Status post venous procedure last month at [facility] Total time spent today was 30 minutes [...] software and direct typing Please excuse inadvertent licensed weigher or typing errors, or uncorrected word substitutions Although every attempt has been made by the provider to proofread this document, occasional misspellings and typographical errors may still be present Due to the previous pandemic, and the use of personal protective equipment (PPE) This may decrease voice recognition accuracy Inadvertent licensed weigher errors may occur 03/06/2024 Anemia due to [...] minimum of 6 months The most recent [place] [employer]ocrinologists and [place] [employer] guidelines recommend patients who [...] software and direct typing Please excuse inadvertent licensed weigher or typing errors, or uncorrected word substitutions Although every attempt has been made by the provider to proofread this document, occasional misspellings and typographical errors may still be present Due to the previous pandemic, and the use of personal protective equipment (PPE) This may decrease voice recognition accuracy Inadvertent licensed weigher errors may occur 04/17/2024 Anemia due to [...] software and direct typing Please excuse inadvertent licensed weigher or typing errors, or uncorrected word substitutions Although every attempt has been made by the provider to proofread this document, occasional misspellings and typographical errors may still be present Due to the previous pandemic, and the use of personal protective equipment (PPE) This may decrease voice recognition accuracy Inadvertent licensed weigher errors may occur 06/04/2024 Anemia due to [...] software and direct typing Please excuse inadvertent licensed weigher or typing errors, or uncorrected word substitutions Although every attempt has been made by the provider to proofread this document, occasional misspellings and typographical errors may still be present Due to the previous pandemic, and the use of personal protective equipment (PPE) This may decrease voice recognition accuracy Inadvertent licensed weigher errors may occur 04/17/2024 Type 2 diabetes [...] software and direct typing Please excuse inadvertent licensed weigher or typing errors, or uncorrected word substitutions Although every attempt has been made by the provider to proofread this document, occasional misspellings and typographical errors may still be present Due to the previous pandemic, and the use of personal protective equipment (PPE) This may decrease voice recognition accuracy Inadvertent licensed weigher errors may occur 03/06/2024 Type 2 diabetes [...] minimum of 6 months The most recent [place] [employer]ocrinologists and [place] [employer] guidelines recommend patients who [...] software and direct typing Please excuse inadvertent licensed weigher or typing errors, or uncorrected word substitutions Although every attempt has been made by the provider to proofread this document, occasional misspellings and typographical errors may still be present Due to the previous pandemic, and the use of personal protective equipment (PPE) This may decrease voice recognition accuracy Inadvertent licensed weigher errors may occur 06/04/2024 Type 2 diabetes [...] software and direct typing Please excuse inadvertent licensed weigher or typing errors, or uncorrected word substitutions Although every attempt has been made by the provider to proofread this document, occasional misspellings and typographical errors may still be present Due to the previous pandemic, and the use of personal protective equipment (PPE) This may decrease voice recognition accuracy Inadvertent licensed weigher errors may occur 07/17/2024 Type 2 diabetes mellitus without complication, without long-term current use of insulin (ICD-10 - E11.9) #Weight Management 07/17/2024 Patient is thriving and continual improvements in body composition including fat mass Continue 15 mg dosing Status post venous procedure last month at [facility] Total time spent today was 30 minutes [...] software and direct typing Please excuse inadvertent licensed weigher or typing errors, or uncorrected word substitutions Although every attempt has been made by the provider to proofread this document, occasional misspellings and typographical errors may still be present Due to the previous pandemic, and the use of personal protective equipment (PPE) This may decrease voice recognition accuracy Inadvertent licensed weigher errors may occur 09/09/2024 Type 2 diabetes [...] software and direct typing Please excuse inadvertent licensed weigher or typing errors, or uncorrected word substitutions Although every attempt has been made by the provider to proofread this document, occasional misspellings and typographical errors may still be present Due to the previous pandemic, and the use of personal protective equipment (PPE) This may decrease voice recognition accuracy Inadvertent licensed weigher errors may occur 10/22/2024 Encounter for examination [...] software and direct typing Please excuse inadvertent licensed weigher or typing errors, or uncorrected word substitutions Although every attempt has been made by the provider to proofread this document, occasional misspellings and typographical errors may still be present Due to the previous pandemic, and the use of personal protective equipment (PPE) This may decrease voice recognition accuracy Inadvertent licensed weigher errors may occur 09/09/2024 Encounter for examination [...] software and direct typing Please excuse inadvertent licensed weigher or typing errors, or uncorrected word substitutions Although every attempt has been made by the provider to proofread this document, occasional misspellings and typographical errors may still be present Due to the previous pandemic, and the use of personal protective equipment (PPE) This may decrease voice recognition accuracy Inadvertent licensed weigher errors may occur 07/17/2024 Encounter for examination of blood pressure without abnormal findings (ICD-10 - Z01.30) #Weight Management 07/17/2024 Patient is thriving and continual improvements in body composition including fat mass Continue 15 mg dosing Status post venous procedure last month at [facility] Total time spent today was 30 minutes [...] software and direct typing Please excuse inadvertent licensed weigher or typing errors, or uncorrected word substitutions Although every attempt has been made by the provider to proofread this document, occasional misspellings and typographical errors may still be present Due to the previous pandemic, and the use of personal protective equipment (PPE) This may decrease voice recognition accuracy Inadvertent licensed weigher errors may occur Plan Of Treatment Pending Test Test Name Order Date CBC (COMPLETE BLOOD COUNT) WITH DIFF 02/2023 COMPREHENSIVE METABOLIC PANEL 04/07/2023 HEMOGLOBIN A1C 04/07/2023 LIPID PANEL 04/07/2023 TSH 04/07/2023 URINALYSIS, COMPLETE 04/07/2023 LIPASE 04/07/2023 AMYLASE 04/07/2023 VITAMIN D, 1,25 DIHYDROXY LC/MS/MS 04/06 Next Appt Details Provider Name:LATOYA JOHNSON, 02/18/2025 10:15:00 AM, [address] [facility], [facility] [address], [place], [address], Insurance Providers Payer Name Payer Address Payer Phone Subscriber Number Group Number Insured Name Patient Relationship to Insured Coverage Start Date Coverage End Date [employer] or Options [address] [place] [phone] [id number] Shaq Daley Self - patient is the insured Medical (General) History Medical History History ICD Code high blood pressure high cholesterol angina Arthritis anxiety depression Surgical History Surgery Date(Month/Year) appendectomy 1987 bariatric surgery 2014
--- OUTSIDE RECORDS SUMMARY | 2025-02-03 16:48 | XMS_ITS | Clinical Summary ---
Author Organization [address] [facility] Address [address] [place] [address] Phone Care Team Providers Care Sheet Metal Layout Worker Name Role Phone Marianne Garner MD Primary Care Provider [phone] Allergies Active Allergy Reactions Criticality Noted Date Comments Gabapentin 09/27/2019 Medications albuterol HFA (PROAIR HFA ; PROVENTIL HFA ; VENTOLIN HFA) 90 mcg/actuation inhaler Inhale 2 Puffs into the lungs every 6 hours as needed for Cough, Wheezing or Shortness of Breath. 12/08/19 24 Active ARIPiprazole (ABILIFY) 10 mg tablet Take 1 Tablet by mouth daily. 04/08/19 23 Active aspirin 81 mg EC tablet Take 1 Tab by mouth daily. 11/09/19 19 Active cetirizine (ZyrTEC) 10 mg tablet TAKE 1 TABLET BY MOUTH DAILY 05/29/19 24 Active clotrimazole (LOTRIMIN) 1 % cream APPLY TOPICALLY TO THE AFFECTED AREA TWICE DAILY FOR 10 DAYS FOR RASH 06/14/19 24 Active FLUoxetine (PROzac) 40 mg capsule 04/08/19 23 Active multivitamin with minerals (MULTIPLE VITAMIN-MINERALS ORAL) Take by mouth daily. Active fish,bora,flax oils-om3,6,9no1 (Pacifica 3-6-9) 1,200 mg capsule Pacifica 3-6-9 Cap Take by mouth daily. Active ondansetron ODT (ZOFRAN-ODT) 4 mg disintegrating tablet 1 tablet (4 mg total) every 8 (eight) hours if needed. 02/12/19 24 Active traZODone (DESYREL) 50 mg tablet Take 1 tablet (50 mg total) by mouth at bedtime as needed. 08/03/19 24 Active UNABLE TO FIND CPAP HISTORICAL (HISTORICAL CPAP)Inhale into the lungs. [employer]-pressur e 8 Active diclofenac (VOLTAREN) 1 % topical gelIndications:Ac rich[place] pain of both knees Apply 4 g topically 2 (two) times a day if needed (maggie knee pain). 100 g 1 01/29/20 24 Active linaCLOtide (LINZESS) 145 mcg capsule Take 1 capsule (145 mcg total) by mouth 1 (one) time each day. Active atorvastatin (Lipitor) 40 mg tablet Take 1 tablet (40 mg total) by mouth at bedtime. 30 each 11 05/09/19 25 2025 Active tiZANidine (ZANAFLEX) 4 mg tablet 1 tablet (4 mg total) every 8 hours. PRN Active eszopiclone (LUNESTA) 2 mg tablet Take 1 tablet (2 mg total) by mouth at bedtime. Active tirzepatide (Mounjaro) 15 mg/0.5 mL injection Inject 0.5 mL (15 mg total) under the skin every 7 (seven) days. Active lisinopril (PRINIVIL,ZESTRIL ) 40 mg tablet TAKE 1 TABLET(40 MG) BY MOUTH 1 TIME EACH DAY 90 tablet 1 07/03/19 25 Active metoprolol succinate (TOPROL-XL) 200 mg 24 hr tablet TAKE 1 TABLET(200 MG) BY MOUTH 1 TIME EACH DAY 90 tablet 1 08/16/19 25 Active fluticasone propionate (FLONASE) 50 mcg/actuation nasal spray SHAKE LIQUID AND USE 2 SPRAYS IN EACH NOSTRIL 1 TIME EACH DAY 16 g 3 10/26/19 25 Active hydroCHLOROthiazi de (HYDRODIURIL) 25 mg tablet TAKE 1 TABLET(25 MG) BY MOUTH 1 TIME EACH DAY 90 tablet 1 01/24/20 25 Active hydroCHLOROthiazi de (HYDRODIURIL) 25 mg tablet Take 1 tablet (25 mg total) by mouth 1 (one) time each day. 90 tablet 1 07/31/19 25 2024 Discontinued Active Problems Problem Noted Date Diagnosed Date [...] Incidentally noted during an ER visit to [facility] for sensation of palpitations associated with high [...] (12/15/2023): 4.[address] done at [facility] to r/o PE. Repeat recommended for February 2015 Depression 06/03/2013 Overview (12/15/2023): Patient has a prescribing psychiatric provider in [facility] (dr Vargas). On carbamezepine and citalopram and lorazepam Morbid obesity 10/19/2012 DONNA (obstructive sleep apnea) 06/20/2012 Overview (12/15/2023): [...] Supplies letter has been given Paroxysmal A-fib 02/28/2012 Overview (12/15/2023): - Initially had an episode sometime around 2006 per the patient and his regulatory affairs manager in [place] at which point he reports being cardioverted- apparently was told he needed a pacemaker but sought a second opinion from another transitions manager rn who did not feel this was needed - Admitted with tachkirill at [facility] on 02/2014. MICAH score of 1. Recommended rate control and ASA Last Assessment & Plan: Very low burden, low [id number] score overall, agree with baby aspirin, continue metoprolol which is serving both as rate control but also for blood pressure control Assessment & Plan (02/19/2024 9:21 AM EST): Patient is in sinus rhythm on EKG today. [id number] 2 score of 1. Recommended rate control [...] Encounters Date Type Department Care Team Description 01/15/2025 2:30 PM EST Office Visit Vascular Surgery - [facility] [address] [facility] [address] [place] [address] Lila Spence MD Varicose veins of both legs with edema (Primary Dx); Venous reflux 11/19/2024 10:35 AM EDT Office Visit Pulmonology - [facility] [address] [facility] [address] [place] [address] Marni Narvaez NP DONNA (obstructive sleep apnea) (Primary Dx); Hypertension, unspecified type; Depression, unspecified depression type; Paroxysmal A-fib (CMS/HCC V24, CMS/HCC V28); Obesity (BMI 30-39.9) from Last 3 Months Surgical History Surgery Date Site/Laterality Comments APPENDECTOMY PROCEDURE: HISTORICAL APPENDECTOMY OTHER SURGICAL HISTORY PROCEDURE: SD THYROIDECTOMY RMVL REMAINING TISS FLWG PRTL RMVL; COMMENT: normal thyroid nodule OTHER SURGICAL HISTORY 06/2014 PROCEDURE: ---- OTHER ----; COMMENT: history of bariatric surgery/ gastric sleeve Medical History Medical History Date Comments NE, old DX:NE, old HTN (hypertension) DX:HTN (hyper tension) Chronic [...] on file Sexual Orientation Not on file Last Filed Vital Signs Vital Sign Reading Time Taken Comments Blood Pressure 125/80 01/15/2025 2:27 PM EST Pulse 91 01/15/2025 2:27 PM EST Temperature 36.6 C (97.8 F) 11/19/2024 10:17 AM EDT Respiratory Rate 16 11/19/2024 10:17 AM EDT Oxygen Saturation 99% 11/19/2024 10:17 AM EDT Inhaled Oxygen Concentration - - Weight 119 kg (263 lb) 01/15/2025 2:27 PM EST Height 180.3 cm (5' 11 ) 01/15/2025 2:27 PM EST Body Mass Index 36.68 01/15/2025 2:27 PM EST Plan of Treatment Upcoming Encounters Date Type Department Care Team (Late st Contact Info) Description 02/21/2025 9:45 AM EST Office Visit Pulmonology - [place] [address] [facility] [address] [place] [phone] Marni Narvaez NP [address] [place] [phone] 02/28/2025 8:15 AM EST Office Visit Internal Medicine - [place] [address] [facility] [address] [place] [phone] Marianne Garner MD [address] [facility] [address] [place] [phone] 01/15/2026 2:30 PM EST Office Visit Vascular Surgery - [place] [address] [facility] [address] [place] [phone] Davida Ingram PA [address] [place] [phone] Health Maintenance Due Date Last Done Comments Colorectal Cancer Screening: Colonoscopy 1970 Drug Screen 1971 Non-Opioid Controlled Substance Agreement 1971 Diabetes: Annual Foot Exam 06/17/1981 Diabetes: [...] hypertension Mixed hyperlipidemia HEMOGLOBIN A1C Routine 11/15/2023 HM DEPRESSION SCREENING Routine 07/31/2020 HEPATITIS C SCREENING Routine 09/19/2013 HIV SCREENING Routine 09/19/2013 from Last 3 Months or Most Recently Relevant to Health Maintenance Results * (ABNORMAL) Lipid panel with reflex to direct LDL (09/24/2024 8:50 AM EDT) Cholesterol 188 0 - 200 mg/dL LAB CHEMISTRY METHOD 09/24/2024 2:42 PM EDT [facility] Triglycerides 148 0 - 150 mg/dL LAB CHEMISTRY METHOD 09/24/2024 2:42 PM EDT [facility] HDL 43 >=40 mg/dL LAB CHEMISTRY METHOD 09/24/2024 2:42 PM EDT [facility] LDL Calculated 115(H) 0 - 100 mg/dL LAB CHEMISTRY METHOD 09/24/2024 2:42 PM EDT [facility] Comment:Estimated LDL Calcul ated using equation: Total cholesterol - HDL cholesterol - (Triglycerides/5) VLDL Cholesterol Jarrod 29.6 mg/dL LAB CHEMISTRY METHOD 09/24/2024 2:42 PM EDT [facility] Non HDL Chol. (LDL+VLDL) 145(H) <145 mg/dL LAB CHEMISTRY METHOD 09/24/2024 2:42 PM EDT [facility] Chol/HDL Ratio 4.4 0.0 - 4.4 LAB CHEMISTRY METHOD 09/24/2024 2:42 PM EDT [facility] Blood Venous blood specimen / Unknown Venipuncture / Unknown 09/24/2024 8:50 AM EDT 09/24/2024 8:50 AM EDT us Marianne Garner MD LAB BLOOD ORDERABLES Final Res ult [facility] [address] [place] [address], [place] [phone] * Comprehensive metabolic panel (09/24/2024 8:50 AM EDT) [facility] Signature Sodium 138 133 - 145 mmol/L LAB CHEMISTRY METHOD 09/24/2024 2:42 PM [facility] Potassium 3.8 3.5 - 5.5 mmol/L LAB CHEMISTRY METHOD 09/24/2024 2:42 PM [facility] Chloride 101 96 - 110 mmol/L LAB CHEMISTRY METHOD 09/24/2024 2:42 PM [facility] CO2 32 21 - 32 mmol/L LAB CHEMISTRY METHOD 09/24/2024 2:42 PM [facility] Anion Gap 5 3 - 11 LAB CHEMISTRY METHOD 09/24/2024 2:42 PM [facility] Glucose 79 70 - 100 mg/dL LAB CHEMISTRY METHOD 09/24/2024 2:42 PM [facility] BUN 20 5 - 25 mg/dL LAB CHEMISTRY METHOD 09/24/2024 2:42 PM [facility] Creatinine 1.16 0.70 - 1.30 mg/dL LAB CHEMISTRY METHOD 09/24/2024 2:42 PM [facility] eGFR 75 >=60 mL/min/1. 73m2 LAB CHEMISTRY METHOD 09/24/2024 2:42 PM [facility] Comment:Calculation based on the Chronic Kidney Disease Epidemiology Collaboration (CKD-EPI) equation refit without adjustment for race. BUN/Creatinine Ratio 17.2 LAB CHEMISTRY METHOD 09/24/2024 2:42 PM [facility] Calcium 8.9 8.5 - 10.5 mg/dL LAB CHEMISTRY METHOD 09/24/2024 2:42 PM [facility] AST (SGOT) 21 10 - 42 unit/L LAB CHEMISTRY METHOD 09/24/2024 2:42 PM [facility] ALT (SGPT) 29 10 - 60 unit/L LAB CHEMISTRY METHOD 09/24/2024 2:42 PM EDT [facility] Alkaline Phosphatase 90 42 - 121 unit/L LAB CHEMISTRY METHOD 09/24/2024 2:42 PM EDT [facility] Total Protein 7.3 6.0 - 8.0 g/dL LAB CHEMISTRY METHOD 09/24/2024 2:42 PM EDT [facility] Albumin 3.7 3.2 - 5.0 g/dL LAB CHEMISTRY METHOD 09/24/2024 2:42 PM EDT [facility] Total Bilirubin 0.7 0.0 - 1.4 mg/dL LAB CHEMISTRY METHOD 09/24/2024 2:42 PM EDT [facility] Blood Venous blood specimen / Unknown Venipuncture / Unknown 09/24/2024 8:50 AM EDT 09/24/2024 8:50 AM EDT Marianne Garner MD LAB BLOOD ORDERABLES Final Res ult [facility] [address] [place] [address], * Hemoglobin A1c (11/15/2023) Pathologist [facility] Hemoglobin A1C 5.0 <=6.5 % Blood Venous blood specimen / Unknown Historical Provider LAB BLOOD ORDERABLES Ana l Result * Depression Screening (07/31/2020) Depression Screening Abstracted Historical Provider HEALTH MAINTENANCE Final Result * HIV Screening (09/19/2013) Pathologist [facility] HIV Screening Abstracted Historical Provider HEALTH MAINTENANCE Final Result * Hepatitis C Screening (09/19/2013) Pathologist [facility] Hepatitis C Screening Abstracted Historical Provider HEALTH MAINTENANCE Final Result from Last 3 Months or Most Recently Relevant to Health Maintenance Insurance [employer] Member Subscriber Plan / Payer (Ef fective 2019-Present) Name:AMANDA BREWERIVAN GUILLERMO Relation to Subscriber:Self Name:Guillermo Daley Payer ID:[id number] Group ID:[id number] Type:Not on file Address: [place] [address] [address] [phone] Care Teams Sheet Metal Layout Worker Relationship Specialty Start Date End Date Marianne Garner MD [address] [facility] [address] [place] [address] PCP - General Internal Medicine 01/08/24
--- OUTSIDE RECORDS SUMMARY | 2025-02-03 16:48 | XMS_ITS | Clinical Summary ---
[facility] Prior to 07[facility]24 Address [address] [place] [address] Care Team Providers Care Sous Chef Name Role Phone Marianne Garner MD Primary Care Provider [phone] Allergies Active Allergy Reactions Criticality Noted Date [...] age to complete this topic Care Teams Sous Chef Relationship Specialty Start Date End Date Marianne Garner MD [address] [address] PCP - General Internal Medicine 02/02/22
== END 2025-02-03 14:58 | disposition home or self-care (01) ==
LOC: HO.HPHYS 14:27
PROVIDERS: PCP Internal Medicine; Visit Provider Physician Assistant
DX: M16.0 Bilateral primary osteoarthritis of hip (principal); M54.2 Cervicalgia; M25.811 Other specified joint disorders, right shoulder
CPT/HCPCS: 99214

== ENCOUNTER → 2025-02-03 14:26 | Outpatient (BNVA) | payer OTHER, SELFPAY | PROVIDERS: PCP Internal Medicine; Visit Provider Physician Assistant | DX: M16.0 Bilateral primary osteoarthritis of hip (principal); M54.2 Cervicalgia; M25.811 Other specified joint disorders, right shoulder; R20.0 Anesthesia of skin; Z79.52 Long term (current) use of systemic steroids | CPT/HCPCS: 99212 ==